=== PATIENT | male | born 1960 | race Hispanic/Latino ===

== ENCOUNTER 2024-09-12 11:14 | Emergency (ER) | payer OTHER ==
[2024-09-12] MEDS ORDERED: NA CHLORIDE 0.9% 250 ML ONE (11:37)
[2024-09-12] MEDS ORDERED: ONDANSETRON 4 MG/2 ML VIAL ONE (11:37)
[2024-09-12] MEDS ORDERED: MORPHINE 4 MG/ML SYR ONE (11:37)
[2024-09-12 11:38] LABS: Absolute Basophils 0.1 K/uL (0-0.5); Absolute Eosinophils 0.2 K/uL (0-0.5); Absolute Monocytes 0.6 K/uL (0.1-1.3); Absolute Neutrophil 4.9 K/uL (1.8-8.0); Basophils % 0.8 % (0-1.3); Eosinophils % 2.5 % (0-4.4); Hematocrit 43.3 % (39.6-49.0); Hemoglobin 14.9 g/dL (13.6-17.9); Lymphocytes % 25.8 % (15.3-44.8); MCH 28.4 pg (27.0-35.0); MCHC 34.3 g/dL (32.0-36.0); MCV 82.7 fL (80-100); MPV 7.7 fL (7.6-11.3); Monocytes % 7.5 % (3.3-12.3); Neutrophils % 63.4 % (41.7-73.7); Platelets 506 thou/uL (152-406); RBC Red Blood Cell Count 5.24 M/uL (4.33-5.43); Red Cell Distribution Width 13.4 % (12.1-15.2)
[2024-09-12 11:53] LABS: ALT/SGPT 22 U/L (16-61); Albumin 3.4 g/dL (3.4-5.0); Albumin/Globulin Ratio 0.7 (1.1-1.8); Alkaline Phosphatase 114 U/L (45-117); Anion Gap 12.1 mEq/L (5.0-15.0); BUN Blood Urea Nitrogen 13 mg/dL (7-18); Bicarbonate 23 mEq/L (21-32); Bilirubin Total 0.7 mg/dL (0.2-1.0); Globulin 4.7 g/dL (2.3-3.5); Glomerular Filtration Rate 102 ml/min (=/>90); Glucose Level 196 mg/dL (74-106); Lipase 31 U/L (13-75); Potassium 4.1 mEq/L (3.5-5.1); Protein, Total 8.1 g/dL (6.4-8.2); Sodium Level 126 mEq/L (136-145)
[2024-09-12 11:55] LABS: AST/SGOT < 10 U/L (15-37)
[2024-09-12] MEDS ORDERED: NA CHLORIDE 0.9% 500 ML ONE (12:19)
--- NOTE | 2024-09-12 12:34 | RAD REPORT ---
EXAMINATION: CT ABDOMEN AND PELVIS WITH CONTRAST CLINICAL INDICATION: ABD PAIN TECHNIQUE: CT abdomen and pelvis was performed, after the administration of IV contrast, [facility]. Axial, sagittal and coronal reconstructions were obtained. One or more of the following dose reduction techniques were used: Automated exposure control, adjustment of the mA and k V according to patient size, and iterative reconstruction. Unless otherwise specified, incidental findings do not require dedicated imaging follow-up. COMPARISON: No prior exam. FINDINGS: LOWER CHEST: The visualized lung bases are clear. LIVER: Normal in size and contour. No focal lesion. Grossly unremarkable gallbladder. SPLEEN: Normal size. No focal lesion. PANCREAS: No mass, ductal dilation, or judson-pancreatic fluid. ADRENALS: Normal; no mass. KIDNEYS: Normal size and contour. No hydronephrosis. GASTROINTESTINAL TRACT: No evidence of free air, significant intra-abdominal free fluid, bowel obstru ction or abscess. There is mild diverticulosis coli of the sigmoid colon without diverticulitis. APPENDIX: Normal appendix. LYMPH NODES: No lymphadenopathy. MUSCULOSKELETAL: Mild to moderate lumbar degenerative changes. ADDITIONAL FINDINGS: None. IMPRESSION: No acute or concerning abnormalities seen in the abdomen or pelvis.
[2024-09-12 12:36] LABS: Specific Gravity > 1.030 (1.005-1.030); Sqamous Epithelial <5 /HPF (None Seen); Urine Bacteria None Seen /HPF (<20); Urine Bilirubin NEGATIVE (Negative); Urine Blood Negative (Negative); Urine Clarity Clear (Clear); Urine Color Light-Yellow (Yellow); Urine Culture Reflex Order NOT NEEDED; Urine Glucose TRACE (Negative); Urine Ketones NEGATIVE (Negative); Urine Microscopic Reflex YN ORDER UMIC; Urine Mucus Slight /HPF (None Seen); Urine Nitrite NEGATIVE (Negative); Urine Protein NEGATIVE (Negative); Urine RBC <5 /HPF (None Seen); Urine Urobilinogen Normal (Normal); Urine WBC None Seen /HPF (<5); Urine pH 6.5 (5.0-7.0)
--- NOTE | 2024-09-12 12:42 | EDPHYS ---
Physician Documentation [facility] Name: Jonah Whitaker Age: 64 yrs Sex: Male : 1960 Arrival Date: 09/12/2024 Time: 11:14 Bed 6 Private MD: ED Physician Rizwan Suarez HPI: 09/12 11:39 This 64 yrs old Male presents to ER via Ambulatory with complaints of Pain All rn Over, Abdominal Problem - lump. 11:39 The patient presents with abdominal pain in the lower abdomen. Onset: The rn symptoms/episode began/occurred 2 week(s) ago. Associated signs and symptoms: Pertinent negatives: blood in stools, chest pain, fever. Modifying factors: The symptoms are alleviated by nothing, the symptoms are aggravated by touching the area. Severity of pain: At its worst the pain was moderate in the emergency department the pain is unchanged. The patient has experienced similar episodes in the past. Patient reports lower abdominal pain, worse on the right side, began 2 weeks ago during hospitalization for urinary tract infection at outside hospital. States still taking cephalexin but does not feel like it is taking care of the problem as he is still hurting. No fever or chills. No blood in stool. No trauma. Reports has been to multiple emergency rooms since recent hospitalization with no acute findings and discharged each time. Saw his PCP Dr. Curtis and told to come to [place] emergency room instead to find out what is going on. Patient denies worsening of symptoms just not improving.. Historical: - Allergies: 11:30 No Known Allergies; cm10 - Home Meds: 11:30 Metformin Oral [Active]; cm10 - PMHx: 11:30 Diabetes mellitus; Hypertensive disorder; cm10 - Immunization history:: Adult Immunizations unknown. - Infectious Disease History:: Denies. - Social history:: Smoking status: Patient/guardian denies using tobacco. - Family history:: not pertinent. - Hospitalizations: : Patient was recently seen at [facility]. ROS: 11:39 Constitutional: Negative for fever, chills, and weight loss, Cardiovascular: Negative rn for chest pain, palpitations, and edema, Respiratory: Negative for shortness of breath, cough, wheezing, and pleuritic chest pain, Abdomen/GI: Positive for abdominal pain Back: Negative for injury and pain, : Negative for injury, bleeding, discharge, and swelling, MS/Extremity: Negative for injury and deformity, Skin: Negative for injury, rash, and discoloration, Neuro: Negative for headache, weakness, numbness, tingling, and seizure, Exam: 11:39 Constitutional: This is a well developed, well nourished patient who is awake, alert, rn and in no acute distress. Ambulatory to room without difficulty or assistance ENT: Dry mucous membranes Cardiovascular: Tachycardic, regular. No pulse deficits. Respiratory: No increased work of breathing, no retractions or nasal flaring. Abdomen/GI: Soft, mild right lower quadrant tenderness, no masses, no rebound or guarding Skin: Warm, dry Neuro: Awake and alert, GCS 15, oriented to person, place, time, and situation. Normal gait. Vital Signs: 11:28 BP 154 / 102; Pulse 103; Resp 17; Temp 97.6(O); Pulse Ox 98% on R/A; Weight 80.29 kg; cm10 Height 5 ft. 6 in. ; Pain 9/10; 12:24 BP 141 / 92; Pulse 83; Resp 17; Pulse Ox 97% on R/A; ll1 12:48 BP 115 / 84; Pulse 62; Resp 16; Pulse Ox 97% ; ll1 11:28 Body Mass Index 28.57 (80.29 kg, 167.64 cm) cm10 11:28 Pain Scale: Adult cm10 MDM: 11:19 Medical Screening Exam initiated rn 12:36 ED course: CT abdomen pelvis images negative for acute findings per my interpretation.. rn 12:40 Differential diagnosis: appendicitis, bowel obstruction, cholecystitis, Cholelithiasis, rn diverticulitis, gastritis, gastroesophageal reflux disease, non-specific abd pain, pancreatitis, Peptic Ulcer Disease, Ureterolithiasis, urinary tract infection. Data reviewed: vital signs, nurses notes, lab test result(s), radiologic studies, CT scan, and as a result, I will discharge patient. Counseling: I had a detailed discussion with the patient and/or guardian regarding the historical points, exam findings, and any diagnostic results supporting the discharge/admit diagnosis, lab results, radiology results, the need for outpatient follow up, to return to the emergency department if symptoms worsen or persist or if there are any questions or concerns that arise at home. Special discussion: Based on the patient's Hx, exam, and Dx evaluation, there is no indication for emergent surgery or inpatient Tx. It is understood by the patient/guardian that if the Sx's persist or worsen they need to return immediately for re-evaluation. I discussed with the patient/guardian in detail that at this point there is no indication for admission to the hospital. It is understood, however, that if the symptoms persist or worsen the patient needs to return immediately for re-evaluation. Based on the history and exam findings, there is no indication for further emergent testing or inpatient evaluation. I discussed with the patient/guardian the need to see the weir fisherman for further evaluation of the symptoms. I discussed with the patient/guardian the need to see the primary care provider for further evaluation of the symptoms. ED course: No acute findings and workup today. Urine is now clean. Still taking Keflex. No indication for emergent surgery or admission at this time. Per report patient has been to multiple ERs now with negative workups, recommend PCP and GI follow-up. Return precautions given and understood.. 09/12 11:25 Order name: CBC with Diff; Complete Time: 11:48 rn 09/12 11:25 Order name: CMP; Complete Time: 11:57 rn 09/12 11:25 Order name: Lipase; Complete Time: 11:57 rn 09/12 11:25 Order name: Urinalysis w/ reflexes; Complete Time: 12:38 rn 09/12 11:25 Order name: CT Abd/Pelvis - IV Contrast Only; Complete Time: 12:35 rn 09/12 11:25 Order name: IV Saline Lock; Complete Time: 11:27 rn 09/12 11:25 Order name: Labs collected and sent; Complete Time: 11:27 rn Administered Medications: 11:42 Drug: morphine IVP or IV 4 mg IVP once over 4 mins Route: IVP; Infused Over: 4 mins; ll1 Site: right antecubital; 12:24 Follow up: Response: No adverse reaction; Pain is decreased; RASS: Alert and Calm (0) ll1 11:42 Drug: Ondansetron IVP 4 mg IVP once; over 2 minutes Route: IVP; Site: right antecubital;ll1 12:24 Follow up: Response: No adverse reaction; Nausea is decreased ll1 11:42 Drug: NS 0.9% IV 250 ml IV at calculated rate once; to be given as a bolus over 30 ll1 minutes Route: IV; Rate: calculated rate; Site: right antecubital; 12:24 Follow up: Response: No adverse reaction; IV Status: Completed infusion; IV Intake: ll1 250ml 12:24 Drug: NS 0.9% IV 500 ml 500 ml IV at 1 bolus once; to be given as a bolus over 30 ll1 minutes Volume: 500 ml; Route: IV; Rate: 1 bolus; Site: right antecubital; 12:48 Follow up: Response: No adverse reaction; IV Status: Completed infusion; IV Intake: ll1 450ml Disposition Summary: 09/12/24 12:42 Discharge Ordered Notes: Location: Home rn Problem: an ongoing problem rn Symptoms: have improved rn Condition: Stable rn Diagnosis - Abdominal pain, unspecified rn Followup: rn - With: Vladimir Curtis DO - When: As needed - Reason: Recheck today's complaints, Re-evaluation by your physician Discharge Instructions: - Discharge Summary Sheet rn - Abdominal Pain, Adult rn - Pain Without a Known Cause rn Forms: - Medication Reconciliation Form rn - Antibiotic pr intern - Prescription Opioid Use rn - Patient Portal Instructions rn - Leadership Thank You Letter rn Prescriptions: - Tramadol 50 mg Oral Tablet - take 1 tablet ORAL route every 8 hours as needed; 12 tablet; Refills: 0, rn Product Selection Permitted Signatures: Dispatcher [employer] EDMS Rizwan Suarez MD MD rn Lewis, Lynsay, RN RN ll1 Zelda Matthews, RN RN cm10 Corrections: (The following items were deleted from the chart) 11:41 11:39 Hospitalizations: No recent hospitalization is reported. rn rn 11:42 11:39 Constitutional: This is a well developed, well nourished patient who is awake, rn alert, and in no acute distress. Ambulatory to room without difficulty or assistance Cardiovascular: Tachycardic, regular. No pulse deficits. Respiratory: No increased work of breathing, no retractions or nasal flaring. Abdomen/GI: Soft, mild right lower quadrant tenderness, no masses, no rebound or guarding Skin: Warm, dry Neuro: Awake and alert, GCS 15, oriented to person, place, time, and situation. Normal gait. rn
--- NOTE | 2024-09-12 12:42 | ER ---
Nurse's Notes [facility] Name: Jonah Whitaker Age: 64 yrs Sex: Male : 1960 Arrival Date: 09/12/2024 Time: 11:14 Bed 6 Private MD: Diagnosis: Abdominal pain, unspecified Presentation: 09/12 11:28 Chief complaint: Patient states: Abdominal pain onset 08/23. Pt states that he was seen cm10 at [facility] and was diagnosed with kidney infection 2 weeks ago. pt states that his abdominal pain is not improving and radiates to his back. pt also report bloating. Pt taking Cephalexin and recently started on Metformin. Coronavirus screen: Client denies travel out of the [place] in the last 14 days. Ebola Screen: Patient denies travel to an Ebola-affected area in the 21 days before illness onset. Initial Sepsis Screen: Does the patient meet any 2 criteria? HR > 90 bpm. Does the patient have a suspected source of infection? No. Patient's initial sepsis screen is negative. Risk Assessment: Do you want to hurt yourself or someone else? Patient reports no desire to harm self or others. Onset of symptoms was August 23, 2024. 11:28 Method Of Arrival: Ambulatory cm10 11:28 Acuity: CESAR 3 cm10 Triage Assessment: 11:32 General: Appears in no apparent distress. uncomfortable, Behavior is calm, cooperative, cm10 appropriate for age. Neuro: No deficits noted. Level of Consciousness is awake, alert, obeys commands, Oriented to person, place, time, situation, Appropriate for age. Respiratory: No deficits noted. Airway is patent Respiratory effort is even, unlabored, Respiratory pattern is regular, symmetrical. Historical: - Allergies: 11:30 No Known Allergies; cm10 - Home Meds: 11:30 Metformin Oral [Active]; cm10 - PMHx: 11:30 Diabetes mellitus; Hypertensive disorder; cm10 - Immunization history:: Adult Immunizations unknown. - Infectious Disease History:: Denies. - Social history:: Smoking status: Patient/guardian denies using tobacco. - Family history:: not pertinent. - Hospitalizations: : Patient was recently seen at [facility]. Screenin:43 [facility] ED Fall Risk Assessment (Adult) History of falling in the last 3 months, ll1 including since admission No falls in past 3 months (0 pts) Confusion or Disorientation No (0 pts) Intoxicated or Sedated No (0 pts) Impaired Gait No (0 pts) Mobility Assist Device Used No (0 pt) Altered Elimination No (0 pt) Score/Fall Risk Level 0 - 2 = Low Risk Maintained a safe environment, Hourly rounding (assess needs \T\ fall precautionary measures) done. Abuse screen: Denies threats or abuse. Nutritional screening: No deficits noted. Tuberculosis screening: No symptoms or risk factors identified. Assessment: 11:42 Reassessment: No changes from previously documented assessment. Patient and/or family ll1 updated on plan of care and expected duration. Pain level reassessed. Patient is alert, oriented x 3, equal unlabored respirations, skin warm/dry/pink. 11:43 Cardiovascular: No deficits noted. Denies chest pain. ll1 11:43 General: Appears uncomfortable, Behavior is calm, cooperative, appropriate for age. ll1 Pain: Complains of pain in abdomen Pain radiates to back Quality of pain is described as pressure, numb, Pain began months. GI: Reports lower abdominal pain, upper abdominal pain, bloating. 12:25 Reassessment: No changes from previously documented assessment. Patient and/or family ll1 updated on plan of care and expected duration. Pain level reassessed. Patient is alert, oriented x 3, equal unlabored respirations, skin warm/dry/pink. 12:48 Reassessment: No changes from previously documented assessment. Patient and/or family ll1 updated on plan of care and expected duration. Pain level reassessed. Patient is alert, oriented x 3, equal unlabored respirations, skin warm/dry/pink. Vital Signs: 11:28 BP 154 / 102; Pulse 103; Resp 17; Temp 97.6(O); Pulse Ox 98% on R/A; Weight 80.29 kg; cm10 Height 5 ft. 6 in. ; Pain 9/10; 12:24 BP 141 / 92; Pulse 83; Resp 17; Pulse Ox 97% on R/A; ll1 12:48 BP 115 / 84; Pulse 62; Resp 16; Pulse Ox 97% ; ll1 11:28 Body Mass Index 28.57 (80.29 kg, 167.64 cm) cm10 11:28 Pain Scale: Adult cm10 ED Course: 11:18 Patient arrived in ED. im 11:19 Rizwan Suarez MD is Attending Physician. rn 11:20 Nasir Gama, GREGORY is Primary Nurse. ll1 11:30 Triage completed. cm10 11:32 Arm band placed on right wrist. Patient placed in an exam room, on a stretcher. cm10 11:32 Initial lab(s) drawn, by me, sent to lab. Inserted saline lock: 22 gauge in right ss antecubital area, using aseptic technique. Blood collected. Flushed with 10 mL NS. 11:42 Patient has correct armband on for positive identification. Provided Education on: ER ll1 procedures and process. Client placed on continuous cardiac and pulse oximetry monitoring. NIBP monitoring applied. Warm blanket given. 12:11 CT Abd/Pelvis - IV Contrast Only In Process Unspecified. EDMS 12:25 No provider procedures requiring assistance completed. Patient maintains SpO2 ll1 saturation greater than 95% on room air. 12:41 Vladimir Curtis DO is Referral Physician. rn 12:48 IV discontinued, intact, bleeding controlled, No redness/swelling at site. Pressure ll1 dressing applied. Administered Medications: 11:42 Drug: morphine IVP or IV 4 mg IVP once over 4 mins Route: IVP; Infused Over: 4 mins; ll1 Site: right antecubital; 12:24 Follow up: Response: No adverse reaction; Pain is decreased; RASS: Alert and Calm (0) ll1 11:42 Drug: Ondansetron IVP 4 mg IVP once; over 2 minutes Route: IVP; Site: right antecubital;ll1 12:24 Follow up: Response: No adverse reaction; Nausea is decreased ll1 11:42 Drug: NS 0.9% IV 250 ml IV at calculated rate once; to be given as a bolus over 30 ll1 minutes Route: IV; Rate: calculated rate; Site: right antecubital; 12:24 Follow up: Response: No adverse reaction; IV Status: Completed infusion; IV Intake: ll1 250ml 12:24 Drug: NS 0.9% IV 500 ml 500 ml IV at 1 bolus once; to be given as a bolus over 30 ll1 minutes Volume: 500 ml; Route: IV; Rate: 1 bolus; Site: right antecubital; 12:48 Follow up: Response: No adverse reaction; IV Status: Completed infusion; IV Intake: ll1 450ml Medication: 11:43 VIS not applicable for this client. ll1 Intake: 12:24 IV: 250ml; Total: 250ml. ll1 12:48 IV: 450ml; Total: 700ml. ll1 Outcome: 12:42 Discharge ordered by . rn 12:48 Discharged to home ambulatory, ll1 12:48 Condition: stable 12:48 Discharge instructions given to patient, Instructed on discharge instructions, follow up and referral plans. no drinking with medication, no driving heavy equipment, medication usage, Demonstrated understanding of instructions, follow-up care, medications, Prescriptions given X 1, 12:49 Patient left the ED. ll1 Signatures: Dispatcher [employer] EDMS Rizwan Suarez MD MD rn Blanchard, Shelby RN Nasir Siddiqi RN RN ll1 Jasmin Tinajero Clarissa, RN RN cm10 Corrections: (The following items were deleted from the chart) 11:41 11:39 Hospitalizations: No recent hospitalization is reported. rn gregory
[2024-09-12 13:07] VITALS: TEMP 97.6
[2024-09-12 13:13] VITALS: O2SAT 97
[2024-09-12 13:14] VITALS: BP 115/84
== END 2024-09-12 12:49 | disposition home or self-care (01) ==
LOC: ER 11:14
DX: R10.31 Right lower quadrant pain (principal); E11.9 Type 2 diabetes mellitus without complications; I10 Essential (primary) hypertension
CPT/HCPCS: 96365; 85025; 81001; 36415; 83690; 80053; 74177; 96375; 99284; Q9967; J2405; J7050; J7040

== ENCOUNTER 2024-09-19 06:45 | Emergency (ER) | payer OTHER ==
--- OUTSIDE RECORDS SUMMARY | 2024-09-19 06:49 | XMS REPORT | Continuity of Care Document ---
Author Name Unknown Address [address] [facility] [address] [place] [address] [facility] Address [address] [facility] [address] [facility] 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 Name Role Phone PCP, PATIENT DOES NOT HAVE A Primary Care Physic marco Unavailable QUINTEN LAZAR Attending Clinician Unavailable TRAVIS OLEARY Attending Clinician UnavailTOD Wheat Attending Clinician Unavailable TOD RODAS Attending Clinician Unavailable TOD RODAS Attending Clinician Unavailable Henry Barry MD Attending Clinician [phone] Mihir Soni MD Attending Clinician [phone] Tod Rodas DO Attending Clinician [phone] [id number] Attending Clinician Unavailable Campaigns, Generic Provider Attending Clinician Unavailable MEE ALONZO Attending Clinician Unavailable [id number] Attending Clinician Unavailable Jose Antonio NGUYEN Attending Clinician Unavailable Jose Antonio NGUYEN Attending Clinician Unavailable Jose Antonio Mckeon Attending Clinician [phone] FARNAZ CORRAL Attending Clinician Unavailable FARNAZ CORRAL Attending Clinician Unavailable Farnaz Sun Attending Clinician [phone] CARLITA RAZA Attending Clinician Unavailable TROY VILLAVICENCIO Attending Clinician EKTA Lopez Attending Clinician UnavailINA Cast Attending Clinician Unavailable Ina Baron MD Attending Clinician HENRY BARRY Admitting Clinician Unavailable FARNAZ CORRAL Admitting Clinician Unavailable EKTA MUNOZ Admitting Clinician UnavailINA Cast Admitting Clinician Unavailable Payers Payer Name Policy Type Policy Number Effective Date Expirati on Date Source RAJI Hudson [facility] 94 9 [id number] 2024 00:00:00 MEDICARE PART A \T\ B [id number] 2024 00:00:00 EDNA Gonzalez/ DIXIE WERNER [id number] 2023 00:00:00 Problems Condition Name Condition Details Condition Category Status Onset Date Resolution Date Last Treatment Date Treating Clinician Comments Source 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, without long-term current use of insulin (multi HCC) 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, without long-term current use of insulin (multi HCC) Disease Active 08-31 00:00: 00 Dixie Seybold - Externa l Other constipati on Other constipati on Disease Active 08-31 00:00: 00 Dxiie Seybold - Externa l Acute cystitis without hematuria Acute cystitis without hematuria Disease Active 08-31 00:00: 00 Dixie Seybold - Externa l Hyponatrem ia Hyponatrem ia Disease Active 08-31 00:00: 00 Dixie Seybold - Externa l Diabetes mellitus type 2, noninsulin dependent (multi HCC) Diabetes mellitus type 2, noninsulin dependent (multi HCC) Disease Active 08-31 00:00: 00 Dixie Seybold - Externa l DM type 2 with diabetic mixed hyperlipid emia (multi HCC) DM type 2 with diabetic mixed hyperlipid emia (multi HCC) Disease Active 08-29 00:00: 00 Dixie Seybold - Externa l Kidney stone Kidney stone Disease Active 2023-08 00:00: 00 Dixie Seybold - Externa l Allergies, Adverse Reactions, Alerts Allergy Name Allergy Type Status Severity Reaction(s) Onset Date Inactive Date Treating Clinician Comments Source NO KNOWN ALLERGIE S Drug Class Active [facility] Social History Social Habit Start Date Stop Date Quantity Comments Source History of tobacco use Cigarette Smoker Dixie Sesilvana Pettit External Sexual orientation [facility] Alcoholic beverage intake 2024-08-31 00:00:00 2024-08-31 00:00:00 Lifetime non-drinker (finding) Dixie Shankar - External History of Social function 2024-08-31 00:00:00 2024-08-31 00:00:00 Dixie Shankar - External Tobacco use and exposure 2024-08-25 00:00:00 2024-08-25 00:00:00 Smokeless tobacco non-user Dixie Shankar - External Sex 2022-09-11 13:22:27 2022-09-11 13:22:27 Male (finding) Dixie Shankar - External Sex assigned at 1960 00:00:00 1960 00:00:00 Dixie Pettit External Smoking Status Start Date Stop Date Source Tobacco smoking consumption unknown [facility] Occasional tobacco smoker 2024-08-25 00:00:00 Dixie Pettit External Medications Ordered Medication Name Filled Medication Name Start Date Stop Date Current Medication? Ordering Clinician Indication Dosage Frequency Signature (SIG) Comments Components Source cefTRIAXone (ROCEPHIN) 1,000 mg in water for injection, sterile 10 mL IV Push 09-04 17:15: 00 09-04 17:06 :00 No 1000mg 1,000 mg, Intravenou s, ONCE, 1 dose, On 09/04/24 at 1115, 10 mL, Reason for Anti-Infec tive: Empiric Therapy for Suspected Infection, Empiric Therapy Site: Urine, Duration of therapy: Once (ED) [facility] HYDROcodone -acetaminop hen (NORCO 5) tablet 1 tablet 09-04 15:30: 00 09-04 15:59 :00 No 1{tbl} 1 tablet, Oral, ONCE, 1 dose, On 09/04/24 at 0930, NANCI [facility] morpHINE injection 4 mg 09-04 07:30: 00 09-04 07:30 :00 No 4mg 4 mg, Slow IV Push, ONCE, 1 dose, On 09/04/24 at 0130, STAT [facility] iopamidol (ISOVUE 370-500 mL) injection 100 mL 09-04 06:30: 00 09-04 06:30 :00 No [id number] 100mL 100 mL, Intravenou s, ONCE, 1 dose, On 09/04/24 at 0030, Routine [facility] ketorolac (TORADOL) injection 15 mg 09-04 06:00: 00 09-04 05:13 :00 No 15mg 15 mg, Slow IV Push, ONCE, 1 dose, On 09/04/24 at 0000, [facility] methocarbam oL (ROBAXIN) injection 1,000 mg 09-04 05:45: 00 09-04 05:13 :00 No 1000mg 1,000 mg, Slow IV Push, ONCE, 1 dose, On 09/03/24 at 2345, Routine [facility] NaCl 0.9% (NS) bolus infusion 1,000 mL 09-04 05:45: 00 09-04 06:12 :00 No 1000mL at 999 mL/hr, 1,000 mL, IV Infusion, ONCE, 1 dose, On 09/03/24 at 2345, NANCI [facility] morpHINE injection 4 mg 09-04 05:00: 00 09-04 05:13 :00 No 4mg 4 mg, Slow IV Push, ONCE, 1 dose, On 09/03/24 at 2300, STAT [facility] ibuprofen 600 mg tablet 09-04 00:00: 00 Yes [id number] 600mg Take 1 tablet by mouth every 6 (six) hours as needed for Pain (scale 4-6). [facility] traMADoL 50 mg tablet 09-04 00:00: 00 Yes [id number] 50mg Take 1 tablet by mouth every 6 (six) hours as needed for Pain (scale 1-3). Indication s: acute pain [facility] cephALEXin 500 mg capsule 09-04 00:00: 00 09-12 05:59 :00 Yes [id number] 500mg Take 1 capsule by mouth in the morning and 1 capsule in the evening. Do all this for 7 days. [facility] Naproxen (Naprosyn) 500 MG oral Tablet 08-31 11:30: 22 08-31 00:00 :00 No 500mg Take 1 tablet (500 mg total) by mouth in the morning and 1 tablet (500 mg total) in the evening. Take with meals. Dixie saini glipiZIDE 5 MG oral Tablet 08-31 00:00: 00 Yes [id number] 5mg Take 1 tablet (5 mg total) by mouth daily (before a meal). Dixie saini Atorvastati n Calcium 20 MG oral Tablet 08-31 00:00: 00 Yes [id number] 3 20mg QD Take 1 tablet (20 mg total) by mouth nightly. Dixie saini Metformin HCl 500 MG oral Tablet 08-31 00:00: 00 Yes [id number] 500mg Take 1 tablet (500 mg total) by mouth in the morning and 1 tablet (500 mg total) in the evening. Take with meals. Dixie saini Blood Glucose Monitoring Suppl (Blood Glucose Monitor System) w/Device does not apply Kit 08-31 00:00: 00 Yes [id number] 3 Check BS twice daily. Dixie saini Glucose Blood in vitro Strip 08-31 00:00: 00 Yes [id number] 3 Check BS twice daily. Dixie saini Lancets 30G does not apply Misc 08-31 00:00: 00 Yes [id number] 3 Check BS twice daily. Dixie saini Gabapentin 100 MG oral Capsule 08-31 00:00: 00 Yes [id number] 100mg Q.5D Take 1 capsule (100 mg total) by mouth 2 times daily as needed. Dixie saini Amoxicillin (AMOXIL) 500 MG oral Capsule 08-29 00:00: 09-06 05:59 :00 Yes [id number] 500mg Q.[id number] 3D Take 1 capsule (500 mg total) by mouth 3 times daily for 7 days. Dixie saini Atorvastati n Calcium 20 MG oral Tablet 08-29 00:00: 08-31 00:00 :00 No [id number] 20mg QD Take 1 tablet (20 mg total) by mouth daily. Dixie saini Metformin HCl 500 MG oral Tablet 08-29 00:00: 00 08-31 00:00 :00 No [id number] 500mg Take 1 tablet (500 mg total) by mouth in the morning and 1 tablet (500 mg total) in the evening. Take with meals. Dixie saini Naproxen (Naprosyn) 500 MG oral Tablet 08-25 15:07: 09 Yes 500mg Take 1 tablet (500 mg total) by mouth in the morning and 1 tablet (500 mg total) in the evening. Take with meals. Dixie saini Tamsulosin HCl 0.4 MG oral Capsule 08-25 00:00: 00 08-31 00:00 :00 No [id number] .4mg Take 1 capsule (0.4 mg total) by mouth every night at bedtime. Dixie saini metFORMIN (GLUCOPHAGE ) tablet 500 mg 08-24 23:00: 00 Yes 500mg 500 mg, Oral, BID MEALS, First dose on Thu08/24/24 at 1700, Until Discontinu ed, Routine [facility] ketorolac (TORADOL) injection 15 mg 08-24 19:30: 00 08-24 18:24 :00 No 15mg 15 mg, Slow IV Push, ONCE, 1 dose, On Thu08/24/24 at 1330, NANCI [facility] NaCl 0.9% (NS) bolus infusion 1,000 mL 08-24 17:45: 00 08-24 19:18 :00 No 1000mL at 999 mL/hr, 1,000 mL, IV Infusion, ONCE, 1 dose, On Thu08/24/24 at 1145, STAT [facility] acetaminoph en (TYLENOL) tablet 1,000 mg 08-24 16:45: 00 08-24 16:48 :00 No 1000mg 1,000 mg, Oral, ONCE, 1 dose, On Thu08/24/24 at 1045, Routine [facility] naproxen (NAPROSYN) 500 mg tablet 08-24 00:00: 00 Yes [id number] 500mg Take 1 tablet by mouth in the morning and 1 tablet in the evening. Take with meals. [facility] metFORMIN 500 mg tablet 08-24 00:00: 00 Yes [id number] 500mg Take 1 tablet by mouth in the morning and 1 tablet in the evening. [facility] iopamidol (ISOVUE 370-500 mL) injection 85 mL 2023-08 07:30: 00 08-14 07:30 :00 No [id number] 85mL 85 mL, Intravenou s, ONCE, 1 dose, On 08/14/24 at 0130, Routine [facility] ibuprofen (IBU) tablet 600 mg 2023-08 05:00: 00 08-14 05:05 :00 No 600mg 600 mg, Oral, ONCE, 1 dose, On 08/13/24 at 2300, NANCI [facility] diphenhydrA MINE (BENADRYL) tablet 25 mg 2023-08 05:00: 00 08-14 05:05 :00 No 25mg 25 mg, Oral, ONCE, 1 dose, On 08/13/24 at 2300, NANCI [facility] NaCl 0.9% (NS) IV infusion 1,000 mL 2023-08 04:51: 00 08-14 07:10 :00 No 1000mL at 999 mL/hr, Intravenou s, ONCE, 1 dose, On 08/13/24 at 2300, NANCI [facility] ondansetron 4 mg disintegrat ing tablet 2023-08 00:00: 00 Yes [id number] 4mg Take 1 tablet by mouth every 8 (eight) hours as needed for Nausea and Vomiting (N/V). [facility] Dicyclomine HCl 10 MG oral Capsule 2023-08 00:00: 08-31 00:00 :00 No 10mg Q.[id number] 3D Take 1 capsule (10 mg total) by mouth 3 times daily as needed. Dixie saini Tamsulosin HCl 0.4 MG oral Capsule 2023-08 00:00: 00 08-25 00:00 :00 No [id number] .4mg Take 1 capsule (0.4 mg total) by mouth every night at bedtime. Dixie saini Ketorolac Tromethamin e 10 MG oral Tablet 2023-08 00:00: 00 08-25 00:00 :00 No [id number] 10mg Q.25D Take 1 tablet (10 mg total) by mouth every 6 hours as needed for pain. Dixie saini Acetaminoph en-Codeine 300-30 MG oral Tablet 09-29 00:00: 00 10-07 05:59 :00 No [id number] 1{tbl} Q.25D Take 1-2 tablets by mouth every 6 hours as needed for up to 7 days. Dixie saini FENTanyl PF (SUBLIMAZE (PF)) injection 50 mcg 09-23 00:45: 00 09-23 00:57 :00 No 50ug 50 mcg, Intramuscu lar, ONCE, 1 dose, On Thu09/22/23 at 1845, Routine [facility] Acetaminoph en-Codeine 300-30 MG oral Tablet 09-22 00:00: 00 09-29 00:00 :00 No 1{tbl} Q.25D Take 1 tablet by mouth every 6 hours as needed. Dixie Shankar - Externa l HYDROcodone -acetaminop hen (NORCO) 10-325 mg tablet 1 tablet 02-12 19:15: 00 02-12 18:31 :00 No 1{tbl} 1 tablet, Oral, ONCE, 1 dose, On Ana 02/12/23 at 1415, Routine [facility] HYDROcodone -acetaminop hen 5-325 mg tablet 02-12 00:00: 00 02-20 04:59 :00 No [id number] 1{tbl} Take 1-2 tablets by mouth every 6 (six) hours as needed for Pain (scale 1-3) for up to 7 days. Indication s: acute pain [facility] Vital Signs Vital Name Observation Time Observation Value Comments S ource Systolic blood pressure 2024-09-04 17:15:00 130 mm[Hg] [facility] Diastolic blood pressure 2024-09-04 17:15:00 89 mm[Hg] [facility] Heart rate 2024-09-04 17:15:00 82 /min [facility] Respiratory rate 2024-09-04 17:15:00 18 /min [facility] Oxygen saturation in Arterial blood by Pulse oximetry 2024-09-04 17:15:00 99 /min [facility] Body temperature 2024-09-04 12:37:00 36.72 [place] [facility] Body weight 2024-09-04 04:22:00 80.287 kg [facility] BMI 2024-09-04 04:22:00 28.57 kg/m2 [facility] Systolic blood pressure 2024-08-31 17:12:00 130 mm[Hg] Dixie toledo - External Diastolic blood pressure 2024-08-31 17:12:00 70 mm[Hg] Dixie toledo - External Heart rate 2024-08-31 17:12:00 86 /min Al Shankar - External Body temperature 2024-08-31 17:12:00 37 [place] Dixie Shankar - External Respiratory rate 2024-08-31 17:12:00 18 /min Dixie Seybold - External Body height 2024-08-31 17:12:00 167.6 cm Edie ey Seybold - External Body weight 2024-08-31 17:12:00 80.06 kg Edie ey Seybold - External BMI 2024-08-31 17:12:00 28.49 kg/m2 Edie ey Seybold - External Oxygen saturation in Arterial blood by Pulse oximetry 2024-08-31 17:12:00 98 /min Dixie Estradaybo ld - External Systolic blood pressure 2024-08-25 20:45:00 138 mm[Hg] Dixie Seybo ld - External Diastolic blood pressure 2024-08-25 20:45:00 88 mm[Hg] Dixie Estradaybo ld - External Heart rate 2024-08-25 20:45:00 88 /min Al haile Seybold - External Body temperature 2024-08-25 20:45:00 36.94 [place] Dixie Seybold - External Respiratory rate 2024-08-25 20:45:00 18 /min Dixie Seybold - External Body height 2024-08-25 20:45:00 167.6 cm Edie ey Seybold - External Body weight 2024-08-25 20:45:00 80.287 kg Edie ey Seybold - External BMI 2024-08-25 20:45:00 28.57 kg/m2 Edie ey Seybold - External Systolic blood pressure 2024-08-24 20:00:00 159 mm[Hg] [facility] Diastolic blood pressure 2024-08-24 20:00:00 85 mm[Hg] [facility] Heart rate 2024-08-24 20:00:00 70 /min [facility] Body temperature 2024-08-24 20:00:00 36.67 [place] [facility] Respiratory rate 2024-08-24 20:00:00 18 /min [facility] Oxygen saturation in Arterial blood by Pulse oximetry 2024-08-24 20:00:00 98 /min [facility] Body height 2024-08-24 16:15:00 167.6 cm [facility] Body weight 2024-08-24 16:15:00 81.647 kg [facility] BMI 2024-08-24 16:15:00 29.05 kg/m2 [facility] Heart rate 2024-08-14 08:44:00 71 /min [facility] Body temperature 2024-08-14 08:44:00 36.78 [place] [facility] Oxygen saturation in Arterial blood by Pulse oximetry 2024-08-14 08:44:00 97 /min [facility] Systolic blood pressure 2024-08-14 08:00:00 95 mm[Hg] [facility] Diastolic blood pressure 2024-08-14 08:00:00 62 mm[Hg] [facility] Respiratory rate 2024-08-14 08:00:00 15 /min [facility] Body height 2024-08-14 04:16:00 167.6 cm [facility] Body weight 2024-08-14 04:16:00 81.647 kg [facility] BMI 2024-08-14 04:16:00 29.05 kg/m2 [facility] Systolic blood pressure 2024-06-02 19:29:00 124 mm[Hg] Dixie Seybo ld - External Diastolic blood pressure 2024-06-02 19:29:00 82 mm[Hg] Dixie Seybo ld - External Heart rate 2024-06-02 19:29:00 75 /min Kelse y Seybold - External Body temperature 2024-06-02 19:29:00 36.61 [place] Dixie Seybold - External Respiratory rate 2024-06-02 19:29:00 14 /min Dixie Seybold - External Body height 2024-06-02 19:29:00 167.6 cm Edie ey Seybold - External Body weight 2024-06-02 19:29:00 82.101 kg Edie ey Seybold - External BMI 2024-06-02 19:29:00 29.21 kg/m2 Edie ey Seybold - External Diastolic blood pressure 2023-09-29 22:33:00 84 mm[Hg] Dixie Seybo ld - External Heart rate 2023-09-29 22:33:00 84 /min Kelse y Seybold - External Body temperature 2023-09-29 22:33:00 36.83 [place] Dixie Estradaybold - External Respiratory rate 2023-09-29 22:33:00 18 /min Dixie Estradaybold - External Body height 2023-09-29 22:33:00 167.6 cm Edie paez Seybold - External Body weight 2023-09-29 22:33:00 83.093 kg Edie paez Seybold - External BMI 2023-09-29 22:33:00 29.57 kg/m2 Edie paez Seybold - External Oxygen saturation in Arterial blood by Pulse oximetry 2023-09-29 22:33:00 98 /min Dixie Harvey ld - External Systolic blood pressure 2023-09-29 22:33:00 138 mm[Hg] Dixiedenae Nesbitto ld - External Systolic blood pressure 2023-09-23 02:40:00 142 mm[Hg] [facility] Diastolic blood pressure 2023-09-23 02:40:00 87 mm[Hg] [facility] Heart rate 2023-09-23 02:40:00 76 /min [facility] Respiratory rate 2023-09-23 02:40:00 18 /min [facility] Oxygen saturation in Arterial blood by Pulse oximetry 2023-09-23 02:40:00 99 /min [facility] Body temperature 2023-09-22 22:37:00 36.5 [place] [facility] Body height 2023-09-22 22:37:00 167.6 cm [facility] Body weight 2023-09-22 22:37:00 90.719 kg [facility] BMI 2023-09-22 22:37:00 32.28 kg/m2 [facility] Systolic blood pressure 2023-02-12 17:35:00 168 mm[Hg] [facility] Diastolic blood pressure 2023-02-12 17:35:00 107 mm[Hg] [facility] Heart rate 2023-02-12 17:35:00 75 /min [facility] Body temperature 2023-02-12 17:35:00 37 [place] [facility] Respiratory rate 2023-02-12 17:35:00 14 /min [facility] Body height 2023-02-12 17:35:00 167.6 cm [facility] Body weight 2023-02-12 17:35:00 86.183 kg [facility] BMI 2023-02-12 17:35:00 30.67 kg/m2 [facility] Oxygen saturation in Arterial blood by Pulse oximetry 2023-02-12 17:35:00 99 /min [place] [facility] Procedures Procedure Date / Time Performed Performing Clinician Source POCT GLUCOSE (AUTOMATED) 2024-09-04 16:03:00 Raimundo Rodas [facility] CT ABDOMEN PELVIS W CONTRAST 2024-09-04 05:32:31 RutlandHenry [facility] CT TRAUMA THORACIC SPINE WO CONTRAST 2024-09-04 05:32:31 Barry [facility] CT TRAUMA LUMBAR SPINE WO CONTRAST 2024-09-04 05:32:31 Henry Barry [facility] URINALYSIS 2024-09-04 05:02:00 Henry Barry [facility] LIPASE 2024-09-04 04:58:00 Henry Barry [facility] HEPATIC FUNCTION PANEL ([id number]) (ALB,T.PRO,BILI T,BU/BC,ALT,AST,ALK PHOS) 2024-09-04 04:58:00 Henry Barry [facility] BASIC METABOLIC PANEL (NA, K, CL, CO2, GLUCOSE, BUN, CREATININE, CA) 2024-09-04 04:58:00 Henry Barry [facility] SEDIMENTATION RATE 2024-09-04 04:58:00 [facility] 2024-09-04 04:58:00 Henry Barry [facility] POCT GLUCOSE (AUTOMATED) 2024-08-24 19:17:00 Jose Antonio Nguyen [facility] TROPONIN I 2024-08-24 16:26:00 Jose Antonio Nguyen [facility] COMP. METABOLIC PANEL ([id number]) 2024-08-24 16:26:00 Jose Antonio Nguyen Petty [facility] CBC WITH DIFF 2024-08-24 16:26:00 Jose Antonio Nguyen Pet[facility] URINALYSIS 2024-08-24 16:26:00 Jose Antonio Nguyen [facility] LIPASE 2024-08-24 16:26:00 Jose Antonio Nguyen [facility] MAGNESIUM 2024-08-24 16:26:00 Jose Antonio Nguyen Petty [facility] XR CHEST 1 VW 2024-08-14 06:36:51 Ellis [facility] CT ABDOMEN PELVIS W CONTRAST 2024-08-14 06:35:52 Ellis [facility] LACTIC ACID WHOLE BLOOD 2024-08-14 04:51:00 Becca Corral [facility] LIPASE 2024-08-14 04:50:00 Farnaz Corral [facility] COMP. METABOLIC PANEL ([id number]) 2024-08-14 04:50:00 Ellis [facility] CBC WITH DIFF 2024-08-14 04:50:00 Ellis [facility] URINALYSIS 2024-08-14 04:50:00 Ellis [facility] RAPID STREP SCREEN FOR GROUP A 2024-08-14 04:50:00 Ellis [facility] INFLUENZA A/B RSV COVID NAAT 2024-08-14 04:50:00 Ellis [facility] CT CERVICAL SPINE WO CONTRAST 2023-09-23 00:13:36 Alexander [facility] [address] HEAD WO CONTRAST 2023-09-23 00:13:36 Riki Munoz [facility] XR PELVIS <3 VW 2023-09-22 23:52:02 Ekta Munoz [facility] XR WRIST 3+ VW LEFT 2023-09-22 23:52:02 Riki Munoz [facility] ASSIGNMENT OF BENEFITS 2023-09-22 23:39:03 Docto r Unassigned, [place] [facility] NOTICE OF PRIVACY PRACTICES 2023-09-22 23:38:35 Doctor Unassigned, [place] [facility] CONSENT/REFUSAL FOR DIAGNOSIS AND TREATMENT 2023-09-22 23:38:21 Doctor Unassigned, [place] [facility] ASSIGNMENT OF BENEFITS 2023-02-12 17:56:38 Docto r Unassigned, [place] [facility] CONSENT/REFUSAL FOR DIAGNOSIS AND TREATMENT 2023-02-12 17:31:06 Doctor Unassigned, [place] [facility] NOTICE OF PRIVACY PRACTICES 2023-02-12 17:30:40 Doctor Unassigned, [place] [facility] Encounters Start Date/Time End Date/Time Encounter Type Admission Type Attending [facility] Care Department Encounter ID Source 2024-09-29 11:00:00 2024-09-29 11:00:00 Outpatient QUINTEN LAZAR [id number] [facility] 2024-09-20 15:30:00 2024-09-20 15:30:00 Outpatient DIXIE WHARTON [id number] [facility] 2024-09-12 14:15:00 2024-09-12 14:15:00 Outpatient DIXIE WHARTON [id number] [facility] 2024-09-12 00:00:00 2024-09-12 00:00:00 Outpatient QUINTEN LAZAR [id number] [facility] 2024-09-07 11:30:00 2024-09-07 11:30:00 Outpatient TRAVIS OLEARY [id number] [facility] 2024-09-03 22:29:00 2024-09-04 11:54:00 Emergency X TOD RODAS HEE-KWANG YOO, HEE-KWANG AKALLISON ERT [id number] [facility] 2024-09-03 22:29:00 2024-09-04 11:54:00 Emergency Henry Barry Luke R Yoo, Hee-Kwang [facility] ([facility]) [id number] [facility] 2024-08-31 11:55:00 2024-08-31 11:55:00 Outpatient LAB90 DIXIE WHARTON [id number] [facility] 2024-08-31 00:00:00 2024-08-31 11:31:01 Letter (Out) Campaigns, Generic Provider Campaigns, Generic Provider [facility] (ELISABETH) [id number] [facility] 2024-08-31 11:00:00 2024-08-31 11:00:00 Outpatient QUINTEN LAZAR [id number] [facility] 2024-08-29 00:00:00 2024-08-29 00:00:00 Outpatient MEE ALONZO [id number] [facility] 2024-08-29 00:00:00 2024-08-29 00:00:00 Outpatient MEE ALONZO [id number] [facility] 2024-08-26 09:55:00 2024-08-26 09:55:00 Outpatient [id number] DIXIE WHARTON [id number] [facility] 2024-08-25 14:15:00 2024-08-25 14:15:00 Outpatient MEE ALONZO [id number] [facility] 2024-08-24 10:07:00 2024-08-24 14:39:00 Emergency X Jose Antonio NGUYEN K [facility] ERT [id number] [facility] 2024-08-24 10:07:00 2024-08-24 14:39:00 Emergency Jose Antonio Nguyen [facility] [id number] [facility] 2024-08-13:23:00 2024-08-14 02:49:00 Emergency X FARNAZ CORRAL SHINTA [facility] ERT [id number] [facility] 2024-08-13 22:23:00 2024-08-14 02:49:00 Emergency Farnaz Corral [facility] [id number] [id number] [id number] [id number] [facility] 2024-08-01 11:00:00 2024-08-01 11:00:00 Outpatient DIXIE WHARTON [id number] Dixie Shankar 2024-07-14 10:00:00 2024-07-14 10:00:00 Outpatient CARLITA RAZA [id number] [facility] 2024-07-13 00:00:00 2024-07-13 00:00:00 Outpatient CARLITA RAZA [id number] Dixie [facility] 2024-07-08 11:00:00 2024-07-08 11:00:00 Outpatient DIXIE WHARTON [id number] Dixie [facility] 2024-06-02 15:25:00 2024-06-02 15:25:00 Outpatient LAB90 DIXIE WHARTON [id number] Dixie [facility] 2024-06-02 14:30:00 2024-06-02 14:30:00 Outpatient CARLITA RAZA [id number] Dixie [facility] 2023-12-17 15:05:06 2023-12-17 15:05:06 Outpatient SFA CAMILO [id number] Ruben Son Isaias 2023-09-29 16:30:00 2023-09-29 16:30:00 Outpatient TROY VILLAVICENCIO [id number] Dixie Shankar 2023-09-22 16:41:00 2023-09-22 20:45:00 Emergency X ALEXANDER RIKIHUYEN [facility] ERT [id number] [facility] 2023-09-22 16:41:00 2023-09-22 20:45:00 Emergency X EKTA MUNOZ [facility] ERT [id number] [facility] 2023-09-22 16:41:00 2023-09-22 20:45:00 Emergency Ekta Munoz [facility] [id number] [id number] 4.2.7.2.686 [id number] [facility] 2023-02-12 12:37:00 2023-02-12 13:39:00 Emergency X INA BARON [facility] ERT [id number] [facility] 2023-02-12 12:37:00 2023-02-12 13:39:00 Emergency Ina Baron [facility] [id number] 350.1.13.10 4.2.7.2.686 [id number] [facility] Results Test Description Test Time Test Comments Results Result Co mments Source [facility] WO [id number] 07:09:33Exam: CT Thoracic and Lumbar Spine Without Contrast, ?09/03/2024 11:00 PM. Ordering Physician: NEDRA BARRY. History: Mid-back pain, infection suspected, no prior imaging . Comparison: ?None. Technique: CT thoracic and lumbar spine without intravenous contrast wasperformed. CT was performed according to ALARA (As Low As ReasonablyAchievable). Technical Quality: Adequate. Findings: CT Thoracic Spine:Vertebral Column: Vertebral body height and alignment are maintained.Intervertebral disc spaces are preserved. Multilevel bridging anteriorosteophytes. The endplates are preserved. No acute fracture. No evidence ofsignificant central canal stenosis. Paravertebral Tissues: Paraspinal soft tissues are unremarkable. No acutefinding in the visualized lungs. CT Lumbar Spine:Vertebral Column: No acutefracture or traumatic subluxation. Vertebralbody heights are maintained. Moderate to severe loss ofthe L2-P5zokutokiuxsvbv disc space with vacuum phenomena. Multilevel facetarthropathy. Posterior osteophyte disc complexes most pronounced at L2-3and L4-5 resulting in at least mild central canal stenosis. Paravertebral Tissues: Paraspinal soft tissues are unremarkable. No acutefinding in the visualized portions of the abdomen and pelvis.[facility] TH[facility] SPINE WO [id number] 07:09:33Exam: CT Thoracic and Lumbar Spine Without Contrast, ?09/03/2024 11:00 PM. Ordering Physician: NEDRA BARRY. History: Mid-back pain, infection suspected, no prior imaging . Comparison: ?None. Technique: CT thoracic and lumbar spine without intravenous contrast wasperformed. CT was performed according to ALARA (As Low As ReasonablyAchievable). Technical Quality: Adequate. Findings: CT Thoracic Spine :Vertebral Column: Vertebral body height and alignment are maintained.Intervertebral disc spaces are preserved. Multilevel bridging anteriorosteophytes. The endplates are preserved. No acute fracture. No evidence ofsignificant central canal stenosis. Paravertebral Tissues: Paraspinal soft tissues are unremarkable. No acutefinding in the visualized lungs. CT Lumbar Spine:Vertebral Column: No acutefracture or traumatic subluxation. Vertebralbody heights are maintained. Moderate to severe loss ofthe L2-G2kruwwkzwuaggox disc space with vacuum phenomena. Multilevel facetarthropathy. Posterior osteophyte disc complexes most pronounced at L2-3and L4-5 resulting in at least mild central canal stenosis. Paravertebral Tissues: Paraspinal soft tissues are unremarkable. No acutefinding in the visualized portions of the abdomen and pelvis.[facility] ABDOMEN PELVIS W [id number] 07:03:38Exam: CT Abdomen and Pelvis with contrast, 09/03/2024 11:00 PM. Ordering Physician: HENRY BARRY. History: Abdominal distension . Comparison: None. Technique: CT abdomen and pelvis was obtained with intravenous contrast. CTwas performed according to ALARA (As Low As Reasonably Achievable). Technical Quality: Adequate. Findings: LOWER CHEST:Stable pulmonary micronodules in the lung bases. Normal heart size.Multivessel coronary artery disease. Bibasilar atelectasis. ABDOMEN/PELVIS:Liver: No focal lesion.Gallbladder/biliary: Normal gallbladder. No biliary ductal dilation.Pancreas: Normal.Spleen: Normal. Adrenal glands: Normal.Kidneys and ureters: Normal.Bladder: Incompletely distended, which limits evaluation.Reproductive organs: Normal for age. Stomach/bowel: Colonic diverticulosis. No bowelwall thickening. Normalappendix. Lymph nodes: No lymphadenopathy.Peritoneum: No organized fluid collection or free air.Vessels: Atherosclerosis without aneurysm. MUSCULOSKELETAL:Soft tissues: Unremark able.Bones: No acute osseous abnormality.[facility] Sedimentation [id number] 06:01:10* Test Item Value Reference Range Interpretation Comme nts ESR (test code = 75803-9) 73 2-30 H Lab Interpretation (test cod e = 19558-4) Abnormal [facility] (NA, K, CL, CO2, GLUCOSE, BUN, CREATININE, CA)2024-09-04 05:41:28* Test Item Value Reference Range Interpretation Comme nts NA (test code = 3398171762) 129 mmol/L 135-145 L K (test code = 0539574326) 4.7 mmol/L 3.5-5.0 CL (test code = 7527179424) 95 mmol/L 98-108 L CO2 TOTAL (test code = 2058292142) 25 mmol/L 23-31 AGAP (test code = 5295704979) 9 2-16 BUN (test code = 6863842597) 17 mg/dL 7-23 GLUCOSE (test code = 5351509905) 222 mg/dL 70-110 H CREATININE (test code = 2160-0) 0.45 mg/dL 0.60-1.25 L CALCIUM (test code = 7695192257) 9.1 mg/dL 8.6-10.6 eGFR (test code = 20430-4) 116.9 mL/min/1.73m2 CKD-EPI eGFR (2020). Assuming creatinine has been stable day-to-day for at least three months, the eGFR indicates Category G1 (>= 90 mL/min/1.73 m2) Lab Interpretation (test code = 78683-3) Abnormal [facility] PAN[facility] (86672) (ALB,T.PRO,BILI T,BU/BC,ALT,AST,ALK PHOS)2024-09-04 05:41:28* Test Item Value Reference Range Interpretation Comme nts TOTAL BILI (test code = 8423236621) 0.8 mg/dL 0.1-1.1 BILI UNCON (test code = 8900281496) 1.1 mg/dL 0.1-1.1 BILI CONJ (test code = 7768581025) 0.0 mg/dL 0.0-0.3 T PROTEIN (test code = 4291420890) 6.8 g/dL 6.3-8.2 ALBUMIN (test code = 9026529992) 4.0 g/dL 3.5-5.0 ALK PHOS (test code = 5166409362) 99 U/L 34-122 ALTv (test code = 1742-6) 23 U/L 5-50 AST(SGOT) (test code = 9350056109) 21 U/L 13-40 Lab Interpretation (test cod e = 22252-8) Normal [facility]2025-01-12 05:41:28* Test Item Value Reference Range Interpretation Comme nts LIPASE (test code = 9020049262) 68 U/L 0-220 Lab Interpretation (test cod e = 68588-3) Normal [facility] WITH [id number] 05:20:11* Test Item Value Reference Range Interpretation Comme nts WBC (test code = 6690-2) 9.41 4.20-10.70 RBC (test code = 789-8) 4.86 4.26-5.52 HGB (test code = 718-7) 13.6 g/dL 12.2-16.4 HCT (test code = 4544-3) 38.6 % 38.4-49.3 MCV (test code = 787-2) 79.4 fL 81.7-95.6 L MCH (test code = 785-6) 28.0 pg 26.1-32.7 MCHC (test code = 786-4) 35.2 g/dL 31.2-35.0 H RDW-SD (test code = 86278-0) 36.0 fL 38.5-51.6 L RDW-CV (test code = 788-0) 12.7 % 12.1-15.4 PLT (test code = 777-3) 341 150-328 H MPV (test code = 20956-2) 10.0 fL 9.8-13.0 NRBC/100 WBC (test code = 1712563151) 0.0 0.0-10.0 NRBC x10^3 (test code = 1178865445) See_Comment [Automated messa ge] The system which generated this result transmitted reference range: 10*3/?L. The reference range was not used to interpret this result as normal/abnormal. GRAN MAT (NEUT) % (test code = 770-8) 64.8 % IMM GRAN % (test code = 6325927939) 0.30 % LYMPH % (test code = 736-9) 22.6 % MONO % (test code = 5905-5) 9.7 % EOS % (test code = 713-8) 2.2 % BASO % (test code = 706-2) 0.4 % GRAN MAT x10^3(ANC) (test code = 7169618865) 6.09 10*3/uL 1.99-6.95 IMM GRAN x10^3 (test code = 9460222954) 0.03 10*3/uL 0.00-0.06 LYMPH x10^3 (test code = 731-0) 2.13 10*3/uL 1.09-3.23 MONO x10^3 (test code = 742-7) 0.91 10*3/uL 0.36-1.02 EOS x10^3 (test code = 711-2) 0.21 10*3/uL 0.06-0.53 BASO x10^3 (test code = 704-7) 0.04 10*3/uL 0.01-0.09 Lab Interpretation (test code = 93618-7) Abnormal [facility] GLU[facility]SE (AUTOMATED)2024-08-24 19:17:59* Test Item Value Reference Range Interpretation Comme nts POCT GLU (test code = 0053333925) 261 mg/dL 70-110 H Lab Interpretation (test cod e = 86446-1) Abnormal [facility] IrvingTroponin [id number] 17:00:40* Test Item Value Reference Range Interpretation Comme nts TROPONIN I (test code = 2314592304) 0.004 ng/mL <=0.034 DIALLO (test code = DIALLO) Reference (Normal) Range (defined by the 99th percentile reference limit): <= 0.034 ng/mL Note: Cardiac troponin begins to rise 3-4 hours after the onset of ischemia. Repeat in 4-6 hours if the sample was drawn within 3-4 hours of the onset of the symptom and found normal. Diagnosis of myocardial injury is made with acute changes in cTn concentrations with at least one serial sample above the 99th percentile upper reference limit (URL), taken together with the patient's clinical presentation. Biotin has been reported to cause a negative bias, interpret results relative to patient's use of biotin. Lab Interpretation (test code = 17458-5) Normal [facility] with [id number] 16:59:00* Test Item Value Reference Range Interpretation Comme nts WBC (test code = 6690-2) 9.15 4.20-10.70 RBC (test code = 789-8) 4.81 4.26-5.52 HGB (test code = 718-7) 14.0 g/dL 12.2-16.4 HCT (test code = 4544-3) 39.3 % 38.4-49.3 MCV (test code = 787-2) 81.7 fL 81.7-95.6 MCH (test code = 785-6) 29.1 pg 26.1-32.7 MCHC (test code = 786-4) 35.6 g/dL 31.2-35.0 H RDW-SD (test code = 43062-1) 34.5 fL 38.5-51.6 L RDW-CV (test code = 788-0) 11.9 % 12.1-15.4 L PLT (test code = 777-3) 440 150-328 H MPV (test code = 22697-3) 10.0 fL 9.8-13.0 NRBC/100 WBC (test code = 5117564300) 0.0 0.0-10.0 NRBC x10^3 (test code = 6897175698) See_Comment [Automated LetMeGoa ge] The system which generated this result transmitted reference range: 10*3/?L. The reference range was not used to interpret this result as normal/abnormal. GRAN MAT (NEUT) % (test code = 770-8) 66.6 % IMM GRAN % (test code = 4517088409) 1.00 % LYMPH % (test code = 736-9) 22.8 % MONO % (test code = 5905-5) 7.1 % EOS % (test code = 713-8) 2.2 % BASO % (test code = 706-2) 0.3 % GRAN MAT x10^3(ANC) (test code = 0614202497) 6.09 10*3/uL 1.99-6.95 IMM GRAN x10^3 (test code = 3916221503) 0.09 10*3/uL 0.00-0.06 H LYMPH x10^3 (test code = 731-0) 2.09 10*3/uL 1.09-3.23 MONO x10^3 (test code = 742-7) 0.65 10*3/uL 0.36-1.02 EOS x10^3 (test code = 711-2) 0.20 10*3/uL 0.06-0.53 BASO x10^3 (test code = 704-7) 0.03 10*3/uL 0.01-0.09 Lab Interpretation (test code = 14588-1) Abnormal [facility] [place] [place]. Metabolic Panel (29362)2024-08-24 16:49:42* Test Item Value Reference Range Interpretation Comme nts NA (test code = 2916114841) 125 mmol/L 135-145 L K (test code = 6829770347) 3.8 mmol/L 3.5-5.0 CL (test code = 1235012337) 91 mmol/L 98-108 L CO2 TOTAL (test code = 7611796695) 24 mmol/L 23-31 AGAP (test code = 4337171415) 10 2-16 BUN (test code = 3040117411) 13 mg/dL 7-23 GLUCOSE (test code = 2147256132) 347 mg/dL 70-110 H CREATININE (test code = 2160-0) 0.55 mg/dL 0.60-1.25 L TOTAL BILI (test code = 4058138278) 1.0 mg/dL 0.1-1.1 CALCIUM (test code = 6304978365) 8.6 mg/dL 8.6-10.6 T PROTEIN (test code = 0841981466) 6.6 g/dL 6.3-8.2 ALBUMIN (test code = 6289125371) 3.8 g/dL 3.5-5.0 ALK PHOS (test code = 9416271666) 105 U/L 34-122 ALTv (test code = 1742-6) 25 U/L 5-50 AST(SGOT) (test code = 3512099890) 23 U/L 13-40 eGFR (test code = 85160-3) 110.0 mL/min/1.73m2 CKD-EPI eGFR (2020). Assuming creatinine has been stable day-to-day for at least three months, the eGFR indicates Category G1 (>= 90 mL/min/1.73 m2) Lab Interpretation (test code = 94445-8) Abnormal [facility] IrvingMagnesium2025-01-01 16:49:42* Test Item Value Reference Range Interpretation Comme nts MAGNESIUM (test code = 9352220807) 1.9 mg/dL 1.7-2.4 Lab Interpretation (test cod e = 11391-7) Normal [facility] IrvingLipase2025-01-01 16:49:21* Test Item Value Reference Range Interpretation Comme nts LIPASE (test code = 6865328738) 154 U/L 0-220 Lab Interpretation (test cod e = 03658-9) Normal [facility] Abdomen pelvis w [id number] 07:15:44Ordering physician: AFRNAZ CORRAL Indication: Acute abdominal pain, left-sided abdominal pain and fever,history of renal stones COMPARISON: None TECHNIQUE: Axial images of the abdomen and pelvis areperformed followingadministration of intravenous contrast material. Images were reformatted inthe coronal and sagittal plane. CT scan was performed according to ALARA(as low as reasonably achievable)policy. FINDINGS: There is mild dependent atelectasis in the lung bases. There isprominent coronaryarteriosclerosis and mitral valve calcification. Theliver, gallbladder, spleen, adrenal glands and p ancreas are within normallimits. The kidneys are normal in appearance bilaterally withouthydronephrosis or renal calculus. There is a vascular calcification in theleft kidney (series 2, image 54). Noabdominal aortic aneurysm ordissection is appreciated. There is a minimal umbilical hernia containingonly fat at the time of the exam. There is no free fluid in the pelvis. There is no bowel obstruction,widespread diverticulosis or acute diverticulitis. The appendix isidentified and within normal limits. There are fluid-filled nondilatedloops of distal small bowel, with mild mucosal enhancement. Bone windowsthrough the abdomen and pelvis demonstrate no osseous destructive lesion.There is diffuse degenerative disc disease of the lumbar spine, mostpronounced at L4-L5, where there is mild central canal stenosis andmoderate neural foraminal stenosis.[facility] Chest 1 [id number] 07:02:06Exam: Chest (1 View), 08/14/2024 12:00 AM. Ordering Physician: FARNAZ CORRAL. History: Fever. Technique: AP view of the chest. Technical Quality: Adequate. Comparison: None. Findings: Normal cardiac silhouette size. No airspace consolidation, pleuraleffusion, or pneumothorax. No acute osseous abnormality.[facility] [place] [place]. Metabolic Panel (93212)2024-08-14 05:24:07* Test Item Value Reference Range Interpretation Comme nts NA (test code = 2439401250) 129 mmol/L 135-145 L K (test code = 3224630410) 4.1 mmol/L 3.5-5.0 CL (test code = 2466486961) 97 mmol/L 98-108 L CO2 TOTAL (test code = 4064713890) 23 mmol/L 23-31 AGAP (test code = 9412923582) 9 2-16 BUN (test code = 1185511252) 15 mg/dL 7-23 GLUCOSE (test code = 2010500424) 210 mg/dL 70-110 H CREATININE (test code = 2160-0) 0.70 mg/dL 0.60-1.25 TOTAL BILI (test code = 8162887126) 0.7 mg/dL 0.1-1.1 CALCIUM (test code = 5903471036) 9.2 mg/dL 8.6-10.6 T PROTEIN (test code = 9663440928) 7.9 g/dL 6.3-8.2 ALBUMIN (test code = 5006766573) 4.6 g/dL 3.5-5.0 ALK PHOS (test code = 0727179648) 96 U/L 34-122 ALTv (test code = 1742-6) 26 U/L 5-50 AST(SGOT) (test code = 9152154166) 26 U/L 13-40 eGFR (test code = 26416-1) 102.3 mL/min/1.73m2 CKD-EPI eGFR (2020). Assuming creatinine has been stable day-to-day for at least three months, the eGFR indicates Category G1 (>= 90 mL/min/1.73 m2) Lab Interpretation (test code = 40455-8) Abnormal [facility] IrvingLipase2024-12-22 05:24:07* Test Item Value Reference Range Interpretation Comme nts LIPASE (test code = 6271211476) 72 U/L 0-220 Lab Interpretation (test cod e = 04414-1) Normal [facility] IrvingLactic Acid Whole [id number] 05:05:24* Test Item Value Reference Range Interpretation Comme nts LACTIC ACID (test code = 5038955778) 1.18 mmol/L 0.50-2.20 Lab Interpretation (test cod e = 21370-3) Normal [facility] IrvingCb with [id number] 05:02:44* Test Item Value Reference Range Interpretation Comme nts WBC (test code = 6690-2) 6.53 4.20-10.70 RBC (test code = 789-8) 5.16 4.26-5.52 HGB (test code = 718-7) 15.3 g/dL 12.2-16.4 HCT (test code = 4544-3) 43.1 % 38.4-49.3 MCV (test code = 787-2) 83.5 fL 81.7-95.6 MCH (test code = 785-6) 29.7 pg 26.1-32.7 MCHC (test code = 786-4) 35.5 g/dL 31.2-35.0 H RDW-SD (test code = 43743-4) 36.4 fL 38.5-51.6 L RDW-CV (test code = 788-0) 11.9 % 12.1-15.4 L PLT (test code = 777-3) 198 150-328 MPV (test code = 27847-2) 11.2 fL 9.8-13.0 NRBC/100 WBC (test code = 6698844267) 0.0 0.0-10.0 NRBC x10^3 (test code = 9958040940) See_Comment [Automated LetMeGoa ge] The system which generated this result transmitted reference range: 10*3/?L. The reference range was not used to interpret this result as normal/abnormal. GRAN MAT (NEUT) % (test code = 770-8) 71.2 % IMM GRAN % (test code = 7881898930) 0.30 % LYMPH % (test code = 736-9) 21.0 % MONO % (test code = 5905-5) 6.7 % EOS % (test code = 713-8) 0.2 % BASO % (test code = 706-2) 0.6 % GRAN MAT x10^3(ANC) (test code = 0861427617) 4.65 10*3/uL 1.99-6.95 IMM GRAN x10^3 (test code = 0636850212) 0.00-0.06 LYMPH x10^3 (test code = 731-0) 1.37 10*3/uL 1.09-3.23 MONO x10^3 (test code = 742-7) 0.44 10*3/uL 0.36-1.02 EOS x10^3 (test code = 711-2) 0.06-0.53 L BASO x10^3 (test code = 704-7) 0.04 10*3/uL 0.01-0.09 Lab Interpretation (test code = 06381-1) Abnormal [facility] HEAD WO [id number] 01:12:52EXAM: CT HEAD WO CONTRAST, CT CERVICAL SPINE WO CONTRAST HISTORY: 63 years-old Male; head injury COMPARISON: None TECHNIQUE: CT imaging of the head and cervical spine was obtained withoutIV contrast.Coronal and sagittal reformats were constructed. FINDINGS: HEAD: The ventricles and cerebral sulci are normal in caliber and configuration.No hydrocephalus, midline shift or pathological extra-axial f luidcollection is present. The basal cisterns are unremarkable. There is no acute intracranial hemorrhage or significant mass effect. Noparenchymal attenuation abnormality. The person-white matter differentiationis preserved. The mastoid air cells and paranasal air sinuses are clear. The calvariumandcentral skull base are unremarkable. Age-indeterminant bilateral nasal bone fractures partially visualized. CERVICAL SPINE: Normal cervical lordosis is preserved. The vertebral bodies are normal inheight and alignment. No acute fracture or traumatic malalignment. Thecraniocervical junction is intact. The intervertebral disc spaces arepreserved.[facility] CERVICAL SPINE WO [id number] 01:12:52EXAM: CT HEAD WO CONTRAST, CT CERVICAL SPINE WO CONTRAST HISTORY: 63 years-old Male; head injury COMPARISON: None TECHNIQUE: CT imaging of the head and cervical spine was obtained withoutIV contrast.Coronal and sagittal reformats were constructed. FINDINGS: HEAD: The ventricles and cerebral sulci are normal in caliber and configuration.No hydrocephalus, midline shift or pathological extra-axial fluidcollection is present. The basal cisterns are unremarkable. There is no acute intracranial hemorrhage or significant mass effect. Noparenchymal attenuation abnormality. The person-white matter diffe rentiationis preserved. The mastoid air cells and paranasal air sinuses are clear. The calvariumandcentral skull base are unremarkable. Age-indeterminant bilateral nasal bone fractures partially visualized. CERVICAL SPINE: Normal cervical lordosis is preserved. The vertebral bodies are normal inheight and alignment. No acute fracture or traumatic malalignment. Thecraniocervical junction is intact. The intervertebral disc spaces arepreserved.[facility] IrvingXR PELVIS <3 [id number] 00:45:46XR PELVIS <3 VW Indication: right pelvic pain after a fall Technique: A frontal view of the pelvis was submitted for interpretation. Comparison: None RL: Ordering Clinician: EKTA MUNOZ Technical Quality: Adequate Findings:No fractures or dislocations. No acute soft tissue abnormalities.[facility] IrvingXR WRIST 3+ VW [id number] 00:33:24Ordering physician:EKTA MUNOZ CLINICAL HISTORY: ? ?Left wrist pain TECHNIQUE: 3 views of theleft wrist COMPARISON: ?None FINDINGS: There is an acute comminuted intra-articular fracture of thedistal radius.The distal ulna appears intact. Probable cyst or ganglion within thescaphoid. Bony alignment is otherwise maintained. Soft tissue swelling ofthe wrist. Vascular calcifications.[facility]
[2024-09-19] MEDS ORDERED: NA CHLORIDE 0.9% 1,000 ML ONE (07:19)
[2024-09-19 07:29] LABS: Absolute Basophils 0.1 K/uL (0-0.5); Absolute Eosinophils 0.1 K/uL (0-0.5); Absolute Lymphocytes (CBC) 1.9 K/uL (0.7-4.9); Absolute Monocytes 0.7 K/uL (0.1-1.3); Absolute Neutrophil 5.7 K/uL (1.8-8.0); Eosinophils % 1.6 % (0-4.4); Hematocrit 43.8 % (39.6-49.0); Hemoglobin 14.9 g/dL (13.6-17.9); Lymphocytes % 22.8 % (15.3-44.8); MCH 27.9 pg (27.0-35.0); MCHC 33.9 g/dL (32.0-36.0); MCV 82.4 fL (80-100); MPV 7.8 fL (7.6-11.3); Monocytes % 8.1 % (3.3-12.3); Neutrophils % 66.5 % (41.7-73.7); Nucleated Red Blood Cells % 0.1 % (0-0); Platelets 500 thou/uL (152-406); RBC Red Blood Cell Count 5.32 M/uL (4.33-5.43); Red Cell Distribution Width 13.9 % (12.1-15.2)
[2024-09-19] MEDS ORDERED: MORPHINE 4 MG/ML SYR ONE (07:34)
[2024-09-19 07:45] LABS: ALT/SGPT 18 U/L (16-61); Albumin 3.7 g/dL (3.4-5.0); Albumin/Globulin Ratio 0.9 (1.1-1.8); Alkaline Phosphatase 106 U/L (45-117); Anion Gap 13.2 mEq/L (5.0-15.0); BUN Blood Urea Nitrogen 13 mg/dL (7-18); Bicarbonate 24 mEq/L (21-32); Bilirubin Total 0.7 mg/dL (0.2-1.0); Globulin 4.3 g/dL (2.3-3.5); Glomerular Filtration Rate 100 ml/min (=/>90); Glucose Level 253 mg/dL (74-106); Lipase 28 U/L (13-75); Potassium 4.2 mEq/L (3.5-5.1); Sodium Level 127 mEq/L (136-145)
[2024-09-19 07:46] LABS: AST/SGOT < 10 U/L (15-37)
--- NOTE | 2024-09-19 08:01 | RAD REPORT ---
EXAMINATION: CT ABDOMEN AND PELVIS WITH CONTRAST CLINICAL INDICATION: Abd pain;Constipation TECHNIQUE: CT abdomen and pelvis was performed, after the administration of IV contrast[facility]. Axial, sagittal and coronal reconstructions were obtained. One or more of the following dose reduction techniques were used: Automated exposure control, adjustment of the mA and k V according to patient size, and iterative reconstruction. Unless otherwise specified, incidental findings do not require dedicated imaging follow-up. COMPARISON: 09/12/2024 FINDINGS: LOWER CHEST: The visualized lung bases are clear. LIVER: Mild fatty liver is present. No focal lesion or biliary dilatation is seen. Grossly unremark able gallbladder. SPLEEN: Normal size. No focal lesion. PANCREAS: No mass, ductal dilation, or judson-pancreatic fluid. ADRENALS: Normal; no mass. KIDNEYS: Normal size and contour. No hydronephrosis. GASTROINTESTINAL TRACT: No evidence of free air, significant intra-abdominal free fluid, bowel obstru ction or abscess. Moderate stool is retained throughout the colon. APPENDIX: Normal appendix. LYMPH NODES: No lymphadenopathy. MUSCULOSKELETAL: Prominent calcified disc bulges multilevel lumbar spine. ADDITIONAL FINDINGS: None. IMPRESSION: No acute or concerning abnormalities seen in the abdomen or pelvis. Fatty liver.
[2024-09-19] MEDS ORDERED: MAGNESIUM CITRATE 300 ML BOT ONE (08:47)
--- NOTE | 2024-09-19 09:56 | ER ---
Nurse's Notes [facility] Name: Jonah Whitaker Age: 64 yrs Sex: Male : 1960 Arrival Date: 09/19/2024 Time: 06:45 Bed 5 Private MD: Diagnosis: Constipation, unspecified;Abdominal pain, unspecified Presentation: 09/19 07:09 Chief complaint: Patient states: generalized abd pain x 1 month and constipation x 4 ss days. Coronavirus screen: Client denies travel out of the [place] in the last 14 days. Ebola Screen: Patient denies exposure to infectious person. Patient denies travel to an Ebola-affected area in the 21 days before illness onset. Initial Sepsis Screen: Does the patient meet any 2 criteria? No. Patient's initial sepsis screen is negative. Does the patient have a suspected source of infection? No. Patient's initial sepsis screen is negative. Risk Assessment: Do you want to hurt yourself or someone else? Patient reports no desire to harm self or others. Onset of symptoms is unknown. 07:09 Method Of Arrival: Ambulatory ss 07:09 Acuity: CESAR 3 ss Triage Assessment: 07:30 General: Appears in no apparent distress. uncomfortable, Behavior is cooperative, bp appropriate for age, anxious. Pain: Complains of pain in abdomen. EENT: No deficits noted. Neuro: No deficits noted. Cardiovascular: No deficits noted. Respiratory: No deficits noted. GI: Reports constipation. : No signs and/or symptoms were reported regarding the genitourinary system. Derm: No deficits noted. Musculoskeletal: No deficits noted. Historical: - Allergies: 07:11 No Known Allergies; ss - PMHx: 07:11 diabetes mellitus; Hypertensive disorder; ss - Immunization history:: Adult Immunizations up to date. - Infectious Disease History:: Denies. - Family history:: not pertinent. - Hospitalizations: : No recent hospitalization is reported. - Social history:: Smoking status: Patient denies any tobacco usage or history of. Screenin:57 [facility] ED Fall Risk Assessment (Adult) History of falling in the last 3 months, bp including since admission No falls in past 3 months (0 pts) Confusion or Disorientation No (0 pts) Intoxicated or Sedated No (0 pts) Impaired Gait No (0 pts) Mobility Assist Device Used No (0 pt) Altered Elimination No (0 pt) Score/Fall Risk Level 0 - 2 = Low Risk Oriented to surroundings. Abuse screen: Denies threats or abuse. Denies injuries from another. Nutritional screening: No deficits noted. Tuberculosis screening: No symptoms or risk factors identified. Assessment: 07:30 General: SEE TRIAGE. bp 08:57 Reassessment: Patient appears in no apparent distress at this time. Patient is alert, bp oriented x 3, equal unlabored respirations, skin warm/dry/pink. 10:43 Reassessment: Patient appears in no apparent distress at this time. No changes from ld1 previously documented assessment. Patient and/or family updated on plan of care and expected duration. Pain level reassessed. Patient is alert, oriented x 3, equal unlabored respirations, skin warm/dry/pink. Vital Signs: 07:09 BP 147 / 114; Pulse 108; Resp 17; Temp 98(O); Pulse Ox 99% on R/A; Weight 79.38 kg; ss Height 5 ft. 6 in. ; Pain 10/10; 07:11 BP 144 / 107; ss 10:43 BP 139 / 98; Pulse 98; Resp 18; Pulse Ox 100% on R/A; ld1 07:09 Body Mass Index 28.25 (79.38 kg, 167.64 cm) ss 07:09 Pain Scale: Adult ss ED Course: 06:47 Patient arrived in ED. [id number] 07:01 Rizwan Suarez MD is Attending Physician. rn 07:05 Germán Sweet, GREGORY is Primary Nurse. bp 07:11 Triage completed. ss 07:19 Initial lab(s) drawn, by mo, sent to lab. Inserted saline lock: 20 gauge in right cc6 antecubital area, using aseptic technique. Blood collected. Flushed with 10 mL NS. 07:20 CBC with Diff Sent. cc6 07:20 CMP Sent. cc6 07:20 Lipase Sent. cc6 07:30 Arm band placed on. bp 07:47 CT Abd/Pelvis - IV Contrast Only In Process Unspecified. EDMS 08:57 Patient has correct armband on for positive identification. bp 10:43 No provider procedures requiring assistance completed. IV discontinued, intact, ld1 bleeding controlled, No redness/swelling at site. Administered Medications: 07:45 Drug: NS 0.9% IV 1000 ml IV at 1 bolus Per protocol; to be given as a bolus over 60 bp minutes Route: IV; Rate: 1 bolus; Site: right antecubital; 07:45 Drug: morphine IVP or IV 4 mg IVP once over 4 mins Route: IVP; Infused Over: 4 mins; bp Site: right antecubital; :43 Follow up: Response: No adverse reaction ld1 :43 Drug: Magnesium Citrate PO Liquid 300 ml PO once Route: PO; ld1 Medication: 10:43 VIS not applicable for this client. ld1 Outcome: 09:56 Discharge ordered by . rn 10:43 Discharged to home ambulatory, with family, ld1 : Condition: stable :43 Discharge instructions given to patient, family, Instructed on discharge instructions, follow up and referral plans. medication usage, Demonstrated understanding of instructions, follow-up care, medications, Prescriptions given X 1, :44 Patient left the ED. ld1 Signatures: Dispatcher [employer] EDMS Rizwan Suarez MD MD rn Blanchard, Shelby, RN RN ss Peltier, Brian, RN RN bp Sims, Lauren, RN RN ld1 Ashley Vu jj6 Lynne Wray cc6
--- NOTE | 2024-09-19 09:56 | EDPHYS ---
Physician Documentation [facility] Name: Jonah Whitaker Age: 64 yrs Sex: Male : 1960 Arrival Date: 09/19/2024 Time: 06:45 Bed 5 Private MD: ED Physician Rizwan Suarez HPI: 09/19 07:31 This 64 yrs old Male presents to ER via Ambulatory with complaints of rn Abdominal Pain, Constipation. 07:31 The patient presents with abdominal pain in the lower abdomen. Onset: The rn symptoms/episode began/occurred 1 month(s) ago. 07:32 The symptoms do not radiate. Associated signs and symptoms: Pertinent positives: rn constipation, Pertinent negatives: blood in stools, fever, hematuria. The symptoms are described as crampy. Modifying factors: The symptoms are alleviated by nothing, the symptoms are aggravated by nothing. Severity of pain: At its worst the pain was mild in the emergency department the pain is unchanged. The patient has experienced similar episodes in the past. Patient reports lower abdominal pain associated with constipation for at least 1 month. Seen here recently last week without acute findings. Patient states has been to multiple hospitals and has seen GI without clear etiology. No blood in stool. Is passing gas. No fever or chills. No trauma. No urinary symptoms.. Historical: - Allergies: 07:11 No Known Allergies; ss - PMHx: 07:11 diabetes mellitus; Hypertensive disorder; ss - Immunization history:: Adult Immunizations up to date. - Infectious Disease History:: Denies. - Family history:: not pertinent. - Hospitalizations: : No recent hospitalization is reported. - Social history:: Smoking status: Patient denies any tobacco usage or history of. ROS: 07:32 Constitutional: Negative for fever, chills, and weight loss, Cardiovascular: Negative rn for chest pain, palpitations, and edema, Respiratory: Negative for shortness of breath, cough, wheezing, and pleuritic chest pain, Abdomen/GI: Positive for lower abdominal pain and constipation Back: Negative for injury and pain, : Negative for injury, bleeding, discharge, and swelling, MS/Extremity: Negative for injury and deformity, Skin: Negative for injury, rash, and discoloration, Neuro: Negative for headache, weakness, numbness, tingling, and seizure, Exam: 07:32 Constitutional: This is a well developed, well nourished patient who is awake, alert, rn and in no acute distress. Ambulatory to room without difficulty or assistance Cardiovascular: Tachycardic, regular. Respiratory: No increased work of breathing, no retractions or nasal flaring. Abdomen/GI: Soft, mild right lower quadrant and left lower quadrant tenderness. No rebound or guarding. MS/ Extremity: Pulses equal, no cyanosis. Neurovascular intact. Full, normal range of motion. Equal circumference. Neuro: Awake and alert, GCS 15 Vital Signs: 07:09 BP 147 / 114; Pulse 108; Resp 17; Temp 98(O); Pulse Ox 99% on R/A; Weight 79.38 kg; ss Height 5 ft. 6 in. ; Pain 10/10; 07:11 BP 144 / 107; ss 10:43 BP 139 / 98; Pulse 98; Resp 18; Pulse Ox 100% on R/A; ld1 07:09 Body Mass Index 28.25 (79.38 kg, 167.64 cm) ss 07:09 Pain Scale: Adult ss MDM: 07:01 Medical Screening Exam initiated rn 09:53 Differential diagnosis: cholecystitis, Cholelithiasis, diverticulitis, gastritis, rn gastroesophageal reflux disease, non-specific abd pain, Constipation, kidney stone, bowel obstruction. Data reviewed: vital signs, nurses notes, lab test result(s), radiologic studies, CT scan, and as a result, I will discharge patient. Counseling: I had a detailed discussion with the patient and/or guardian regarding the historical points, exam findings, and any diagnostic results supporting the discharge/admit diagnosis, lab results, radiology results, the need for outpatient follow up, to return to the emergency department if symptoms worsen or persist or if there are any questions or concerns that arise at home. Special discussion: Based on the patient's Hx, exam, and Dx evaluation, there is no indication for emergent surgery or inpatient Tx. It is understood by the patient/guardian that if the Sx's persist or worsen they need to return immediately for re-evaluation. I discussed with the patient/guardian in detail that at this point there is no indication for admission to the hospital. It is understood, however, that if the symptoms persist or worsen the patient needs to return immediately for re-evaluation. Based on the history and exam findings, there is no indication for further emergent testing or inpatient evaluation. I discussed with the patient/guardian the need to see the paraprofessional aide teacher for further evaluation of the symptoms. ED course: No acute findings and workup including CT abdomen pelvis. Patient is constipated. Had a long talk with him regarding pain medication and worsening of constipation. Will discharge home with magnesium citrate and stool regimen with return precautions and GI follow-up. I have personally reviewed all of the results, including but not limited to blood tests and imaging deemed necessary to safely discharge this patient at this time. All results given to and printed out for patient. I personally went over all the results with the patient and answered all questions. Patient will follow-up with PCP and or specialist as discussed. Return precautions given and understood.. 09/19 07:06 Order name: CBC with Diff; Complete Time: 07:44 rn 09/19 07:06 Order name: CMP; Complete Time: 08:07 rn 09/19 07:06 Order name: Lipase; Complete Time: 08:07 rn 09/19 07:06 Order name: CT Abd/Pelvis - IV Contrast Only; Complete Time: 08:07 rn 09/19 07:06 Order name: IV Saline Lock; Complete Time: 07:19 rn 09/19 07:06 Order name: Labs collected and sent; Complete Time: 07:19 rn Administered Medications: 07:45 Drug: NS 0.9% IV 1000 ml IV at 1 bolus Per protocol; to be given as a bolus over 60 bp minutes Route: IV; Rate: 1 bolus; Site: right antecubital; 07:45 Drug: morphine IVP or IV 4 mg IVP once over 4 mins Route: IVP; Infused Over: 4 mins; bp Site: right antecubital; 10:43 Follow up: Response: No adverse reaction ld1 10:43 Drug: Magnesium Citrate PO Liquid 300 ml PO once Route: PO; ld1 Disposition Summary: 09/19/24 09:56 Discharge Ordered Notes: Location: Home rn Problem: an ongoing problem rn Symptoms: are unchanged rn Condition: Stable rn Diagnosis - Constipation, unspecified rn - Abdominal pain, unspecified rn Followup: rn - With: Private Physician - When: As needed - Reason: Recheck today's complaints, Re-evaluation by your physician Discharge Instructions: - Discharge Summary Sheet rn - Abdominal Pain, Adult rn - Constipation, Adult rn Forms: - Medication Reconciliation Form rn - Antibiotic wrap turner - Prescription Opioid Use rn - Patient Portal Instructions rn - Leadership Thank You Letter rn Signatures: Dispatcher [employer] Rizwan Torres MD MD rn Blanchard, Shelby RN RN Germán Zurita RN RN Sharda Mora RN RN ld1
[2024-09-19 12:39] VITALS: TEMP 98
[2024-09-19 12:41] VITALS: BP 139/98; O2SAT 100
== END 2024-09-19 10:44 | disposition home or self-care (01) ==
LOC: ER 06:45
DX: K59.00 Constipation, unspecified (principal); R10.9 Unspecified abdominal pain; E11.9 Type 2 diabetes mellitus without complications; I10 Essential (primary) hypertension
CPT/HCPCS: 85025; 36415; 83690; 80053; 74177; Q9967; J7030; 96374; 99284

== ENCOUNTER 2024-09-29 12:27 | Emergency (ER) | payer OTHER ==
--- OUTSIDE RECORDS SUMMARY | 2024-09-29 12:31 | XMS REPORT | Continuity of Care Document ---
Author Name Unknown Address [address] [facility] [address] [place] [address] [facility] Address [address] [place] [address] Care Team Providers Care Product Developer Name Role Phone PCP, PATIENT DOES NOT HAVE A Primary Care Physic marco Unavailable QUINTEN LAZAR Attending Clinician Unavailable TRAVIS OLEARY Attending Clinician UnavailTOD Wheat Attending Clinician Unavailable TOD RODAS Attending Clinician Unavailable TOD RODAS Attending Clinician Unavailable Henry Barry MD Attending Clinician [phone] Mihir Soni MD Attending Clinician [phone] Tod Rodas DO Attending Clinician [phone] [id number] Attending Clinician Unavailable Campaigns, Generic Provider Attending Clinician Unavailable MEE ALONZO Attending Clinician Unavailable [id number] Attending Clinician Unavailable Jose Antonio Mckeon Attending Clinician [phone] Jose Antonio NGUYEN Attending Clinician Unavailable Jose Antonio NGUYEN Attending Clinician Unavailable FARNAZ CORRAL Attending Clinician Unavailable FARNAZ CORRAL Attending Clinician Unavailable Farnaz Sun Attending Clinician [phone] CARLITA RAZA Attending Clinician Unavailable TROY VILLAVICENCIO Attending Clinician EKTA Lopez Attending Clinician UnavailINA Cast Attending Clinician Unavailable Ina Baron MD Attending Clinician HENRY BARRY Admitting Clinician Unavailable FARNAZ CORRAL Admitting Clinician Unavailable EKTA MUNOZ Admitting Clinician UnavailINA Cast Admitting Clinician Unavailable Payers Payer Name Policy Type Policy Number Effective Date Expirati on Date Source RAJI Hudson BOOK CANVASSER 94 9 [id number] 2024 00:00:00 MEDICARE PART A \T\ B [id number] 2024 00:00:00 EDNA Gonzalez/ DIXIE WERNER [id number] 2023 00:00:00 Problems Condition Name Condition Details Condition Category Status Onset Date Resolution Date Last Treatment Date Treating Clinician Comments Source Gastroesop hageal reflux disease with esophagiti s without hemorrhage Gastroesop hageal reflux disease with esophagiti s without hemorrhage Disease Active 09-27 00:00: 00 Dixie Seybold - Externa l H. pylori infection H. 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, without long-term current use of insulin (multi HCC) Disease Active 08-31 00:00: 00 Dixie Seybold - Externa l Other constipati on Other constipati on Disease Active 08-31 00:00: 00 Dixie Seybold - Externa l Acute cystitis without hematuria Acute cystitis without hematuria Disease Active 08-31 00:00: 00 Dixie Seybold - Externa l Hyponatrem ia Hyponatrem ia Disease Active 08-31 00:00: 00 Dixie Seybold - Externa l Diabetes mellitus type 2, noninsulin dependent (multi HCC) Diabetes mellitus type 2, noninsulin dependent (multi HCC) Disease Active 08-31 00:00: 00 Dixie saini DM type 2 with diabetic mixed hyperlipid emia (multi HCC) DM type 2 with diabetic mixed hyperlipid emia (multi HCC) Disease Active 08-29 00:00: 00 Dixie saini Kidney stone Kidney stone Disease Active 2023-08 00:00: 00 Dixie saini Allergies, Adverse Reactions, Alerts Allergy Name Allergy Type Status Severity Reaction(s) Onset Date Inactive Date Treating Clinician Comments Source NO KNOWN ALLERGIE S Drug Class Active [facility] Social History Social Habit Start Date Stop Date Quantity Comments Source History of tobacco use Cigarette Smoker Dixie Pettit External Sexual orientation [facility] Alcoholic beverage intake 2024-08-31 00:00:00 2024-08-31 00:00:00 [...] Stop Date Source Tobacco smoking consumption unknown [facility] Occasional tobacco smoker 2024-08-25 00:00:00 Dixie Pettit External Medications Ordered Medication Name Filled Medication Name Start Date Stop Date Current Medication? Ordering Clinician Indication Dosage Frequency Signature (SIG) Comments Components Source Atorvastati n Calcium 20 MG oral Tablet 2- 00:00: 00 09-27 00:00 :00 Yes [id number] 20mg QD Take 1 tablet (20 mg total) by mouth nightly. Dixie saini cefTRIAXone (ROCEPHIN) 1,000 mg in water for injection, sterile 10 mL IV Push 09-04 17:15: 00 09-04 17:06 :00 No 1000mg 1,000 mg, Intravenou s, ONCE, 1 dose, On 09/04/24 at 1115, 10 mL, Reason for Anti-Infec tive: Empiric Therapy for Suspected Infection, Empiric Therapy Site: Urine, Duration of therapy: Once (ED) [facility] HYDROcodone -acetaminop hen (NORCO 5) tablet 1 tablet 09-04 15:30: 00 09-04 15:59 :00 No 1{tbl} 1 tablet, Oral, ONCE, 1 dose, On 09/04/24 at 0930, NANCI [facility] morpHINE injection 4 mg 09-04 07:30: 00 09-04 07:30 :00 No 4mg 4 mg, Slow IV Push, ONCE, 1 dose, On 09/04/24 at 0130, STAT [facility] iopamidol (ISOVUE 370-500 mL) injection 100 mL 09-04 06:30: 00 09-04 06:30 :00 No [id number] 100mL 100 mL, Intravenou s, ONCE, 1 dose, On 09/04/24 at 0030, Routine [facility] ketorolac (TORADOL) injection 15 mg 09-04 06:00: 00 09-04 05:13 :00 No 15mg 15 mg, Slow IV Push, ONCE, 1 dose, On 09/04/24 at 0000, NANCI [facility] methocarbam oL (ROBAXIN) injection 1,000 mg 09-04 05:45: 00 09-04 05:13 :00 No 1000mg 1,000 mg, Slow IV Push, ONCE, 1 dose, On 09/03/24 at 2345, Routine [facility] NaCl 0.9% (NS) bolus infusion 1,000 mL 09-04 05:45: 00 09-04 06:12 :00 No 1000mL at 999 mL/hr, 1,000 mL, IV Infusion, ONCE, 1 dose, On 09/03/24 at 2345, NANCI [facility] morpHINE injection 4 mg 09-04 05:00: 00 09-04 05:13 :00 No 4mg 4 mg, Slow IV Push, ONCE, 1 dose, On 09/03/24 at 2300, STAT [facility] ibuprofen 600 mg tablet 09-04 00:00: 00 Yes [id number] 600mg Take 1 tablet by mouth every 6 (six) hours as needed for Pain (scale 4-6). [facility] traMADoL 50 mg tablet 09-04 00:00: 00 Yes [id number] 50mg Take 1 tablet by mouth every 6 (six) hours as needed for Pain (scale 1-3). Indication s: acute pain [facility] cephALEXin 500 mg capsule 09-04 00:00: 00 09-12 05:59 :00 Yes [id number] 500mg Take 1 capsule by mouth in the morning and 1 capsule in the evening. Do all this for 7 days. [facility] Naproxen (Naprosyn) 500 MG oral Tablet 08-31 11:30: 22 08-31 00:00 :00 No 500mg Take 1 tablet (500 mg total) by mouth in the morning and 1 tablet (500 mg total) in the evening. Take with meals. Dixie saini Atorvastati n Calcium 20 MG oral Tablet 08-31 00:00: 00 Yes [id number] 3 20mg QD Take 1 tablet (20 mg total) by mouth nightly. Dixie saini Gabapentin 100 MG oral Capsule 08-31 00:00: 00 Yes [id number] 100mg Q.5D Take 1 capsule (100 mg total) by mouth 2 times daily as needed. Dixie saini glipiZIDE 5 MG oral Tablet 08-31 00:00: 00 Yes [id number] 5mg Take 1 tablet (5 mg total) by mouth daily (before a meal). Dixie saini Metformin HCl 500 MG oral Tablet 08-31 00:00: 00 Yes [id number] 500mg Take 1 tablet (500 mg total) by mouth in the morning and 1 tablet (500 mg total) in the evening. Take with meals. Dixie saini Blood Glucose Monitoring Suppl (Blood Glucose Monitor System) w/Device does not apply Kit 08-31 00:00: 00 Yes [id number] 3 Check BS twice daily. Dixie saini Glucose Blood in vitro Strip 08-31 00:00: 00 Yes [id number] 3 Check BS twice daily. Dixie saini Lancets 30G does not apply Misc 08-31 00:00: 00 Yes [id number] 3 Check BS twice daily. Dixie saini Amoxicillin (AMOXIL) 500 MG oral Capsule 08-29 00:00: 00 09-06 05:59 :00 Yes [id number] 500mg Q.[id number] 3D Take 1 capsule (500 mg total) by mouth 3 times daily for 7 days. Dixie saini Atorvastati n Calcium 20 MG oral Tablet 08-29 00:00: 00 08-31 00:00 :00 No [id number] 20mg QD Take 1 tablet (20 mg total) by mouth daily. Dixie saini Metformin HCl 500 MG oral Tablet 08-29 00:00: 00 08-31 00:00 :00 No [id number] 500mg Take 1 tablet (500 mg total) [...] 08-25 00:00: 00 08-31 00:00 :00 No [id number] .4mg Take 1 capsule (0.4 mg total) by mouth every night at bedtime. Dixie saini metFORMIN (GLUCOPHAGE ) tablet 500 mg 08-24 23:00: 00 Yes 500mg 500 mg, Oral, BID MEALS, First dose on Thu08/24/24 at 1700, Until Discontinu ed, Routine [facility] ketorolac (TORADOL) injection 15 mg 08-24 19:30: 00 08-24 18:24 :00 No 15mg 15 mg, Slow IV Push, ONCE, 1 dose, On Thu08/24/24 at 1330, NANCI [facility] NaCl 0.9% (NS) bolus infusion 1,000 mL 08-24 17:45: 00 08-24 19:18 :00 No 1000mL at 999 mL/hr, 1,000 mL, IV Infusion, ONCE, 1 dose, On Thu08/24/24 at 1145, STAT [facility] acetaminoph en (TYLENOL) tablet 1,000 mg 08-24 16:45: 00 08-24 16:48 :00 No 1000mg 1,000 mg, Oral, ONCE, 1 dose, On Thu08/24/24 at 1045, Routine [facility] naproxen (NAPROSYN) 500 mg tablet 08-24 00:00: 00 Yes [id number] 500mg Take 1 tablet by mouth in the morning and 1 tablet in the evening. Take with meals. [facility] metFORMIN 500 mg tablet 08-24 00:00: 00 Yes [id number] 500mg Take 1 tablet by mouth in the morning and 1 tablet in the evening. [facility] iopamidol (ISOVUE 370-500 mL) injection 85 mL 2023-08 07:30: 00 08-14 07:30 :00 No [id number] 85mL 85 mL, Intravenou s, ONCE, 1 dose, On 12/22/24 at 0130, Routine [facility] ibuprofen (IBU) tablet 600 mg 2023-08 05:00: 00 08-14 05:05 :00 No 600mg 600 mg, Oral, ONCE, 1 dose, On 08/13/24 at 2300, [facility] diphenhydrA MINE (BENADRYL) tablet 25 mg 2023-08 05:00: 00 08-14 05:05 :00 No 25mg 25 mg, Oral, ONCE, 1 dose, On 08/13/24 at 2300, [facility] NaCl 0.9% (NS) IV infusion 1,000 mL 2023-08 04:51: 00 08-14 07:10 :00 No 1000mL at 999 mL/hr, Intravenou s, ONCE, 1 dose, On 08/13/24 at 2300, [facility] ondansetron 4 mg disintegrat ing tablet 2023-08 00:00: 00 Yes [id number] 4mg Take 1 tablet by mouth every 8 (eight) hours as needed for Nausea and Vomiting (N/V). [facility] Dicyclomine HCl 10 MG oral Capsule 2023-08 00:00: 00 08-31 00:00 :00 No 10mg Q.[id number] 3D Take 1 capsule (10 mg total) by mouth 3 times daily as needed. Dixie saini Tamsulosin HCl 0.4 MG oral Capsule 2023-08 00:00: 00 08-25 00:00 :00 No [id number] .4mg Take 1 capsule (0.4 mg total) by mouth every night at bedtime. Dixie saini Ketorolac Tromethamin e 10 MG oral Tablet 2023-08 00:00: 00 08-25 00:00 :00 No [id number] 10mg Q.25D Take 1 tablet (10 mg total) by mouth every 6 hours as needed for pain. Dixie saini Acetaminoph en-Codeine 300-30 MG oral Tablet -06 00:00: 00 10-07 05:59 :00 No [id number] 1{tbl} Q.25D Take 1-2 tablets by mouth every 6 hours as needed for up to 7 days. Dixie saini FENTanyl PF (SUBLIMAZE (PF)) injection 50 mcg 09-23 00:45: 00 09-23 00:57 :00 No 50ug 50 mcg, Intramuscu lar, ONCE, 1 dose, On Thu09/22/23 at 1845, Routine [facility] Acetaminoph en-Codeine 300-30 MG oral Tablet 09-22 00:00: 00 09-29 00:00 :00 No 1{tbl} Q.25D Take 1 tablet by mouth every 6 hours as needed. Dixie saini HYDROcodone -acetaminop hen (NORCO) 10-325 mg tablet 1 tablet 02-12 19:15: 00 02-12 18:31 :00 No 1{tbl} 1 tablet, Oral, ONCE, 1 dose, On Thu02/12/23 at 1415, Routine [facility] HYDROcodone -acetaminop hen 5-325 mg tablet 02-12 00:00: 00 02-20 04:59 :00 No [id number] 1{tbl} Take 1-2 tablets by mouth every 6 (six) hours as needed for Pain (scale 1-3) for up to 7 days. Indication s: acute pain [facility] Vital Signs Vital Name Observation Time Observation Value Comments S ource Systolic blood pressure 2024-09-27 17:51:00 138 mm[Hg] Dixie toledo - External Diastolic blood pressure 2024-09-27 17:51:00 90 mm[Hg] Dixie toledo - External Heart rate 2024-09-27 17:51:00 102 /min Al Shankar - External Body temperature 2024-09-27 17:51:00 36.89 [place] Dixie Shankar - External Respiratory rate 2024-09-27 17:51:00 18 /min Dixie Seybold - External Body height 2024-09-27 17:51:00 167.6 cm Edie ey Seybold - External Body weight 2024-09-27 17:51:00 78.926 kg Edie ey Seybold - External BMI 2024-09-27 17:51:00 28.08 kg/m2 Edie ey Seybold - External Oxygen saturation in Arterial blood by Pulse oximetry 2024-09-27 17:51:00 99 /min Dixie Estradaybo ld - External Systolic blood pressure 2024-09-04 17:15:00 130 mm[Hg] [facility] Diastolic blood pressure 2024-09-04 17:15:00 89 mm[Hg] [facility] Heart rate 2024-09-04 17:15:00 82 /min [facility] Respiratory rate 2024-09-04 17:15:00 18 /min [facility] Oxygen saturation in Arterial blood by Pulse oximetry 2024-09-04 17:15:00 99 /min [facility] Body temperature 2024-09-04 12:37:00 36.72 [place] [facility] Body weight 2024-09-04 04:22:00 80.287 kg [facility] BMI 2024-09-04 04:22:00 28.57 kg/m2 [facility] Systolic blood pressure 2024-08-31 17:12:00 130 mm[Hg] Dixie Estradaybo ld - External Diastolic blood pressure 2024-08-31 17:12:00 70 mm[Hg] Dixie Seybo ld - External Heart rate 2024-08-31 17:12:00 86 /min Kelse y Seybold - External Body temperature 2024-08-31 17:12:00 37 [place] Dixie Seybold - External Respiratory rate 2024-08-31 17:12:00 18 /min Dixie Seybold - External Body height 2024-08-31 17:12:00 167.6 cm Edie ey Seybold - External Body weight 2024-08-31 17:12:00 80.06 kg Edie ey Seybold - External BMI 2024-08-31 17:12:00 28.49 kg/m2 Edie ey Seybold - External Oxygen saturation in Arterial blood by Pulse oximetry 2024-08-31 17:12:00 98 /min Dixie Harvey ld - External Systolic blood pressure 2024-08-25 20:45:00 138 mm[Hg] Dixie Harvey ld - External Diastolic blood pressure 2024-08-25 20:45:00 88 mm[Hg] Dixie Harvey ld - External Heart rate 2024-08-25 20:45:00 88 /min Al Shankar - External Body temperature 2024-08-25 20:45:00 36.94 [place] Dixie Shankar - External Respiratory rate 2024-08-25 20:45:00 18 /min Dixie Shankar - External Body height 2024-08-25 20:45:00 167.6 cm Edie Shankar - External Body weight 2024-08-25 20:45:00 80.287 kg Edie Shankar - External BMI 2024-08-25 20:45:00 28.57 kg/m2 Edie Shankar - External Systolic blood pressure 2024-08-24 20:00:00 159 mm[Hg] [facility] Diastolic blood pressure 2024-08-24 20:00:00 85 mm[Hg] [facility] Heart rate 2024-08-24 20:00:00 70 /min [facility] Body temperature 2024-08-24 20:00:00 36.67 [place] [facility] Respiratory rate 2024-08-24 20:00:00 18 /min [facility] Oxygen saturation in Arterial blood by Pulse oximetry 2024-08-24 20:00:00 98 /min [facility] Body height 2024-08-24 16:15:00 167.6 cm [facility] Body weight 2024-08-24 16:15:00 81.647 kg [facility] BMI 2024-08-24 16:15:00 29.05 kg/m2 [facility] Heart rate 2024-08-14 08:44:00 71 /min [facility] Body temperature 2024-08-14 08:44:00 36.78 [place] [facility] Oxygen saturation in Arterial blood by Pulse oximetry 2024-08-14 08:44:00 97 /min [facility] Systolic blood pressure 2024-08-14 08:00:00 95 mm[Hg] [facility] Diastolic blood pressure 2024-08-14 08:00:00 62 mm[Hg] [facility] Respiratory rate 2024-08-14 08:00:00 15 /min [facility] Body height 2024-08-14 04:16:00 167.6 cm [facility] Body weight 2024-08-14 04:16:00 81.647 kg [facility] BMI 2024-08-14 04:16:00 29.05 kg/m2 [facility] Systolic blood pressure 2024-06-02 19:29:00 [...] Body temperature 2023-09-29 22:33:00 36.83 [place] Dixie Seybold - External Respiratory rate 2023-09-29 22:33:00 18 /min Dixie Seybold - External Body height 2023-09-29 22:33:00 167.6 cm Edie ey Seybold - External Body weight 2023-09-29 22:33:00 83.093 kg Edie paez Seybold - External BMI 2023-09-29 22:33:00 29.57 kg/m2 Edie Shankar - External Oxygen saturation in Arterial blood by Pulse oximetry 2023-09-29 22:33:00 98 /min Dixie Harvey ld - External Systolic blood pressure 2023-09-29 22:33:00 138 mm[Hg] Dixie Harvey ld - External Systolic blood pressure 2023-09-23 02:40:00 142 mm[Hg] [facility] Diastolic blood pressure 2023-09-23 02:40:00 87 mm[Hg] [facility] Heart rate 2023-09-23 02:40:00 76 /min [facility] Respiratory rate 2023-09-23 02:40:00 18 /min [facility] Oxygen saturation in Arterial blood by Pulse oximetry 2023-09-23 02:40:00 99 /min [facility] Body temperature 2023-09-22 22:37:00 36.5 [place] [facility] Body height 2023-09-22 22:37:00 167.6 cm [facility] Body weight 2023-09-22 22:37:00 90.719 kg [facility] BMI 2023-09-22 22:37:00 32.28 kg/m2 [facility] Systolic blood pressure 2023-02-12 17:35:00 168 mm[Hg] [facility] Diastolic blood pressure 2023-02-12 17:35:00 107 mm[Hg] [facility] Heart rate 2023-02-12 17:35:00 75 /min [facility]ive [facility] Body temperature 2023-02-12 17:35:00 37 [place] [facility] Respiratory rate 2023-02-12 17:35:00 14 /min [facility] Body height 2023-02-12 17:35:00 167.6 cm [facility] Body weight 2023-02-12 17:35:00 86.183 kg [facility] BMI 2023-02-12 17:35:00 30.67 kg/m2 [facility] Oxygen saturation in Arterial blood by Pulse oximetry 2023-02-12 17:35:00 99 /min [facility] Procedures Procedure Date / Time Performed Performing Clinician Source POCT GLUCOSE (AUTOMATED) 2024-09-04 16:03:00 Christian, SaadWilver Glynn [facility] CT ABDOMEN PELVIS W CONTRAST 2024-09-04 05:32:31 Henry Barry [facility] CT TRAUMA THORACIC SPINE WO CONTRAST 2024-09-04 05:32:31 Henry Barry [facility] CT TRAUMA LUMBAR SPINE WO CONTRAST 2024-09-04 05:32:31 Henry Barry [facility] URINALYSIS 2024-09-04 05:02:00 Henry Barry [facility] LIPASE 2024-09-04 04:58:00 Henry Barry [facility] HEPATIC FUNCTION PANEL ([id number]) (ALB,T.PRO,BILI T,BU/BC,ALT,AST,ALK PHOS) 2024-09-04 04:58:00 Henry Barry [facility] BASIC METABOLIC PANEL (NA, K, CL, CO2, GLUCOSE, BUN, CREATININE, CA) 2024-09-04 04:58:00 Henry Barry [facility] SEDIMENTATION RATE 2024-09-04 04:58:00 Henry Barry [facility] CBC WITH DIFF 2024-09-04 04:58:00 Henry Barry [facility] POCT GLUCOSE (AUTOMATED) 2024-08-24 19:17:00 Jose Antonio Nguyen [facility] TROPONIN I 2024-08-24 16:26:00 Jose Antonio Nguyen [facility] COMP. METABOLIC PANEL ([id number]) 2024-08-24 16:26:00 Jose Antonio Nguyen [facility] CBC WITH DIFF 2024-08-24 16:26:00 Jose Antonio Nguyen [facility] URINALYSIS 2024-08-24 16:26:00 Jose Antonio Nguyen [facility] LIPASE 2024-08-24 16:26:00 Jose Antonio Nguyen [facility] MAGNESIUM 2024-08-24 16:26:00 Jose Antonio Nguyne [facility] XR CHEST 1 VW 2024-08-14 06:36:51 Farnaz Corral [facility] CT ABDOMEN PELVIS W CONTRAST 2024-08-14 06:35:52 Farnaz Corral [facility] LACTIC ACID WHOLE BLOOD 2024-08-14 04:51:00 Becca Corral [facility] LIPASE 2024-08-14 04:50:00 Farnaz Corral [facility] COMP. METABOLIC PANEL ([id number]) 2024-08-14 04:50:[address] [facility] CBC WITH DIFF 2024-08-14 04:50:[address] [facility] URINALYSIS 2024-08-14 04:50:00 Farnaz Corral [facility] RAPID STREP SCREEN FOR GROUP A 2024-08-14 04:50:[address] [facility] INFLUENZA A/B RSV COVID NAAT 2024-08-14 04:50[facility] 2023-09-23 00:13:36 Ekta Munoz [facility] CT HEAD WO CONTRAST 2023-09-23 00:13:36 Emily Munoz [facility] XR PELVIS <3 VW 2023-09-22 23:52:02 Ekta Munoz [facility] XR WRIST 3+ VW LEFT 2023-09-22 23:52:02 Emily Munoz [facility] ASSIGNMENT OF BENEFITS 2023-09-22 23:39:03 Docto r Unassigned, Show Low [facility] NOTICE OF PRIVACY PRACTICES 2023-09-22 23:38:35 Doctor Unassigned, Show Low [facility] CONSENT/REFUSAL FOR DIAGNOSIS AND TREATMENT 2023-09-22 23:38:21 Doctor Unassigned, Show Low [facility] ASSIGNMENT OF BENEFITS 2023-02-12 17:56:38 Docto r Unassigned, Show Low [facility] CONSENT/REFUSAL FOR DIAGNOSIS AND TREATMENT 2023-02-12 17:31:06 Doctor Unassigned, Show Low [facility] NOTICE OF PRIVACY PRACTICES 2023-02-12 17:30:40 Doctor Unassigned, Show Low [facility] Encounters Start Date/Time End Date/Time Encounter Type Admission Type Attending [facility] Care Department Encounter ID Source 2024-11-08 11:00:00 2024-11-08 11:00:00 Outpatient SILVIANATASHA QUINTEN DIXIE WHARTON [id number] [facility] 2024-09-29 11:00:00 2024-09-29 11:00:00 Outpatient CADY QUINTEN WHARTON [id number] [facility] 2024-09-27 11:30:00 2024-09-27 11:30:00 Outpatient CADY QUINTEN WHARTON [id number] [facility] 2024-09-20 15:30:00 2024-09-20 15:30:00 Outpatient DIXIE WHARTON [id number] [facility] 2024-09-12 14:15:00 2024-09-12 14:15:00 Outpatient DIXIE WHARTON [id number] [facility] 2024-09-12 00:00:00 2024-09-12 00:00:00 Outpatient CADY QUINTEN WHARTON [id number] [facility] 2024-09-07 11:30:00 2024-09-07 11:30:00 Outpatient TRAVIS OLEARY DIXIE WHARTON [id number] [facility] 2024-09-03 22:29:00 2024-09-04 11:54:00 Emergency TOD MCNULTY HEE-KWANG YOO, [facility] [id number] [facility] 2024-09-03 22:29:00 2024-09-04 11:54:00 Emergency Henry Barry, Tod Carbajal [facility] (TRAUMA) 1..840.114 [id number] [facility] 2024-08-31 11:55:00 2024-08-31 11:55:00 Outpatient LAB90 DIXIE WHARTON [id number] [facility] 2024-08-31 00:00:00 2024-08-31 11:31:01 Letter (Out) Campaigns, Generic Provider Campaigns, Generic Provider [facility] (ELISABETH) 1..840.114 [id number] [facility] 2024-08-31 11:00:00 2024-08-31 11:00:00 Outpatient QUINTEN LAZAR [id number] [facility] 2024-08-29 00:00:00 2024-08-29 00:00:00 Outpatient MEE ALONZO [id number] [facility] 2024-08-29 00:00:00 2024-08-29 00:00:00 Outpatient MEE ALONZO [id number] [facility] 2024-08-26 09:55:00 2024-08-26 09:55:00 Outpatient [id number] DIXIE WHARTON [id number] [facility] 2024-08-25 14:15:00 2024-08-25 14:15:00 Outpatient MEE ALONZO [id number] [facility] 2024-08-24 10:07:00 2024-08-24 14:39:00 Emergency Jose Antonio Nguyen [facility] 1..840.114 [id number] [facility] 2024-08-24 10:07:00 2024-08-24 14:39:00 Emergency X Jose Antonio NGUYEN K [facility] ERT [id number] [facility] 2024-08-13 22:23:00 2024-08-14 02:49:00 Emergency X FARNAZ CORRAL [facility] ERT [id number] [facility] 2024-08-13 22:23:00 2024-08-14 02:49:00 Emergency Farnaz Corral [facility] [id number] 350.1.13.10 [id number] [id number] [facility] 2024-08-01 11:00:00 2024-08-01 11:00:00 Outpatient DIXIE WHARTON [id number] Dixie sarah 2024-07-14 10:00:00 2024-07-14 10:00:00 Outpatient CARLITA RAZA [id number] [facility] 2024-07-13 00:00:00 2024-07-13 00:00:00 Outpatient CARLITA RAZA [id number] [facility] 2024-07-08 11:00:00 2024-07-08 11:00:00 Outpatient DIXIE WHARTON [id number] [facility] 2024-06-02 15:25:00 2024-06-02 15:25:00 Outpatient LAB90 DIXIE WHARTON [id number] [facility] 2024-06-02 14:30:00 2024-06-02 14:30:00 Outpatient CARLITA RAZA [id number] [facility] 2023-12-17 15:05:06 2023-12-17 15:05:06 Outpatient [facility] [id number] Ruben Esparza 2023-09-29 16:30:00 2023-09-29 16:30:00 Outpatient TROY VILLAVICENCIO [id number] [facility] 2023-09-22 16:41:00 2023-09-22 20:45:00 Emergency X EKTA MUNOZ [facility] ERT [id number] [facility] 2023-09-22 16:41:00 2023-09-22 20:45:00 Emergency X EKTA MUNOZ [facility] ERT [id number] [facility] 2023-09-22 16:41:00 2023-09-22 20:45:00 Emergency Ekta Munoz [facility] [id number] 350.1.13.10 [id number] [id number] [facility] 2023-02-12 12:37:00 2023-02-12 13:39:00 Emergency X INA BARON [facility] ERT [id number] [facility] 2023-02-12 12:37:00 2023-02-12 13:39:00 Emergency Ina Baron [facility] [id number] [id number] 4.2.7.2.686 [id number] [facility] Results Test Description Test Time Test Comments Results Result Co mments Source [facility] WO [id number] 07:09:33Exam: CT Thoracic and Lumbar Spine Without [...] are maintained. Moderate to severe loss ofthe L2-X1qyfoqkfoykwiry disc space with vacuum phenomena. Multilevel facetarthropathy. Posterior osteophyte disc complexes most pronounced at L2-3and L4-5 resulting in at least mild central canal stenosis. Paravertebral Tissues: Paraspinal soft tissues are unremarkable. No acutefinding in the visualized portions of the abdomen and pelvis.[facility] TRAUMA THORACIC SPINE WO [id number] 07:09:33Exam: CT Thoracic and Lumbar Spine Without [...] are maintained. Moderate to severe loss ofthe L2-R2ppudimnesanlvz disc space with vacuum phenomena. Multilevel facetarthropathy. Posterior osteophyte disc complexes most pronounced at L2-3and L4-5 resulting in at least mild central canal stenosis. Paravertebral Tissues: Paraspinal soft tissues are unremarkable. No acutefinding in the visualized portions of the abdomen and pelvis.[facility] PELVIS W [id number] 07:03:38Exam: CT Abdomen and Pelvis with contrast, [...] MUSCULOSKELETAL:Soft tissues: Unremark able.Bones: No acute osseous abnormality.[facility] Sedimentation [id number] 06:01:10* Test Item Value Reference Range Interpretation Comme nts ESR (test code = 76103-0) 73 2-30 H Lab Interpretation (test cod e = 01970-3) [facility] (NA, K, CL, CO2, GLUCOSE, BUN, CREATININE, CA)2024-09-04 05:41:28* Test Item Value Reference Range Interpretation Comme nts NA (test code = 8536271843) 129 mmol/L 135-145 L K (test code = 1250122101) 4.7 mmol/L 3.5-5.0 CL (test code = 9544390058) 95 mmol/L 98-108 L CO2 TOTAL (test code = 9684884080) 25 mmol/L 23-31 AGAP (test code = 0486396161) 9 2-16 BUN (test code = 2906640061) 17 mg/dL 7-23 GLUCOSE (test code = 8008562225) 222 mg/dL 70-110 H CREATININE (test code = 2160-0) 0.45 mg/dL 0.60-1.25 L CALCIUM (test code = 9718793371) 9.1 mg/dL 8.6-10.6 eGFR (test code = 29051-7) 116.9 mL/min/1.73m2 CKD-EPI eGFR (2020). Assuming creatinine has been stable day-to-day for at least three months, the eGFR indicates Category G1 (>= 90 mL/min/1.73 m2) Lab Interpretation (test code = 25987-7) [facility] (82658[facility] (ALB,T.PRO,BILI T,BU/BC,ALT,AST,ALK PHOS)2024-09-04 05:41:28* Test Item Value Reference Range Interpretation Comme nts TOTAL BILI (test code = 4051661192) 0.8 mg/dL 0.1-1.1 BILI UNCON (test code = 2613444545) 1.1 mg/dL 0.1-1.1 BILI CONJ (test code = 8599521804) 0.0 mg/dL 0.0-0.3 T PROTEIN (test code = 9888074567) 6.8 g/dL 6.3-8.2 ALBUMIN (test code = 0443918872) 4.0 g/dL 3.5-5.0 ALK PHOS (test code = 2331919746) 99 U/L 34-122 ALTv (test code = 1742-6) 23 U/L 5-50 AST(SGOT) (test code = 9654889448) 21 U/L 13-40 Lab Interpretation (test cod e = 87653-3) [facility]2025-[facility]12 05:41:28* Test Item Value Reference Range Interpretation Comme nts LIPASE (test code = 4369748267) 68 U/L 0-220 Lab Interpretation (test cod e = 02363-1) Normal [facility] WITH [id number] 05:20:11* Test Item Value Reference Range Interpretation [...] g/dL 31.2-35.0 H RDW-SD (test code = 12231-6) 36.0 fL 38.5-51.6 L RDW-CV (test code = 788-0) 12.7 % 12.1-15.4 PLT (test code = 777-3) 341 150-328 H MPV (test code = 76581-8) 10.0 fL 9.8-13.0 NRBC/100 WBC (test code = 4449618515) 0.0 0.0-10.0 NRBC x10^3 (test code = 6022553372) See_Comment [Automated messa ge] The system which generated this result transmitted reference range: 10*3/?L. The reference range was not used to interpret this result as normal/abnormal. GRAN MAT (NEUT) % (test code = 770-8) 64.8 % IMM GRAN % (test code = 7941635916) 0.30 % LYMPH % (test code = 736-9) 22.6 % MONO % (test code = 5905-5) 9.7 % EOS % (test code = 713-8) 2.2 % BASO % (test code = 706-2) 0.4 % GRAN MAT x10^3(ANC) (test code = 2524030302) 6.09 10*3/uL 1.99-6.95 IMM GRAN x10^3 (test code = 6713721683) 0.03 10*3/uL 0.00-0.06 LYMPH x10^3 (test code = 731-0) 2.13 10*3/uL 1.09-3.23 MONO x10^3 (test code = 742-7) 0.91 10*3/uL 0.36-1.02 EOS x10^3 (test code = 711-2) 0.21 10*3/uL 0.06-0.53 BASO x10^3 (test code = 704-7) 0.04 10*3/uL 0.01-0.09 Lab Interpretation (test code = 30026-1) [facility]normal [facility]AUT[facility]ATED)2024-08-24 19:17:59* Test Item Value Reference Range Interpretation Comme nts POCT GLU (test code = 9697035809) 261 mg/dL 70-110 H Lab Interpretation (test cod e = 28380-4) [facility]normal [facility]ano[facility]roponin [id number] 17:00:40* Test Item Value Reference Range Interpretation Comme nts TROPONIN I (test code = 1600360871) 0.004 ng/mL <=0.034 DIALLO (test code = [...] of biotin. Lab Interpretation (test code = 70588-9) Normal [facility] with [id number] 16:59:00* Test Item Value Reference Range Interpretation [...] g/dL 31.2-35.0 H RDW-SD (test code = 06078-7) 34.5 fL 38.5-51.6 L RDW-CV (test code = 788-0) 11.9 % 12.1-15.4 L PLT (test code = 777-3) 440 150-328 H MPV (test code = 81282-4) 10.0 fL 9.8-13.0 NRBC/100 WBC (test code = 1214076101) 0.0 0.0-10.0 NRBC x10^3 (test code = 6811243891) See_Comment [Automated Machine Safety Manangementa ge] The system which generated this result transmitted reference range: 10*3/?L. The reference range was not used to interpret this result as normal/abnormal. GRAN MAT (NEUT) % (test code = 770-8) 66.6 % IMM GRAN % (test code = 6752923571) 1.00 % LYMPH % (test code = 736-9) 22.8 % MONO % (test code = 5905-5) 7.1 % EOS % (test code = 713-8) 2.2 % BASO % (test code = 706-2) 0.3 % GRAN MAT x10^3(ANC) (test code = 6705218648) 6.09 10*3/uL 1.99-6.95 IMM GRAN x10^3 (test code = 0721886038) 0.09 10*3/uL 0.00-0.06 H LYMPH x10^3 (test code = 731-0) 2.09 10*3/uL 1.09-3.23 MONO x10^3 (test code = 742-7) 0.65 10*3/uL 0.36-1.02 EOS x10^3 (test code = 711-2) 0.20 10*3/uL 0.06-0.53 BASO x10^3 (test code = 704-7) 0.03 10*3/uL 0.01-0.09 Lab Interpretation (test code = 06602-9) [facility]normal [facility] Metabolic Panel (70509)2024-08-24 16:49:42* Test Item Value Reference Range Interpretation Comme nts NA (test code = 6728887174) 125 mmol/L 135-145 L K (test code = 1262435006) 3.8 mmol/L 3.5-5.0 CL (test code = 5959793615) 91 mmol/L 98-108 L CO2 TOTAL (test code = 8331598813) 24 mmol/L 23-31 AGAP (test code = 1236848815) 10 2-16 BUN (test code = 5661882911) 13 mg/dL 7-23 GLUCOSE (test code = 7000900734) 347 mg/dL 70-110 H CREATININE (test code = 2160-0) 0.55 mg/dL 0.60-1.25 L TOTAL BILI (test code = 6186502580) 1.0 mg/dL 0.1-1.1 CALCIUM (test code = 1448942881) 8.6 mg/dL 8.6-10.6 T PROTEIN (test code = 8348548453) 6.6 g/dL 6.3-8.2 ALBUMIN (test code = 6028687087) 3.8 g/dL 3.5-5.0 ALK PHOS (test code = 9805617293) 105 U/L 34-122 ALTv (test code = 1742-6) 25 U/L 5-50 AST(SGOT) (test code = 4741617614) 23 U/L 13-40 eGFR (test code = 10970-0) 110.0 mL/min/1.73m2 CKD-EPI eGFR (2020). Assuming creatinine has been stable day-to-day for at least three months, the eGFR indicates Category G1 (>= 90 mL/min/1.73 m2) Lab Interpretation (test code = 50353-5) [facility]normal [facility]esium2025-01-01 16:49:42* Test Item Value Reference Range Interpretation Comme nts MAGNESIUM (test code = 2641374060) 1.9 mg/dL 1.7-2.4 Lab Interpretation (test cod e = 18962-8) Normal [facility]2025-01-01 16:49:21* Test Item Value Reference Range Interpretation Comme nts LIPASE (test code = 3608597077) 154 U/L 0-220 Lab Interpretation (test cod e = 50512-9) Normal [facility] Abdomen pelvis w [id number] 07:15:44Ordering physician: FARNAZ CORRAL Indication: Acute abdominal pain, left-sided abdominal [...] mild central canal stenosis andmoderate neural foraminal stenosis.[facility] Chest 1 [id number] 07:02:06Exam: Chest (1 View), 08/14/2024 12:00 AM. Ordering Physician: FARNAZ CORRAL. History: Fever. Technique: AP view of the chest. Technical Quality: Adequate. Comparison: None. Findings: Normal cardiac silhouette size. No airspace consolidation, pleuraleffusion, or pneumothorax. No acute osseous abnormality.[facility]. Metabolic Panel (23750)2024-08-14 05:24:07* Test Item Value Reference Range Interpretation Comme nts NA (test code = 2171311176) 129 mmol/L 135-145 L K (test code = 6407192716) 4.1 mmol/L 3.5-5.0 CL (test code = 0269981117) 97 mmol/L 98-108 L CO2 TOTAL (test code = 6617819782) 23 mmol/L 23-31 AGAP (test code = 6520058791) 9 2-16 BUN (test code = 5972181018) 15 mg/dL 7-23 GLUCOSE (test code = 8959666696) 210 mg/dL 70-110 H CREATININE (test code = 2160-0) 0.70 mg/dL 0.60-1.25 TOTAL BILI (test code = 7904102048) 0.7 mg/dL 0.1-1.1 CALCIUM (test code = 9703450314) 9.2 mg/dL 8.6-10.6 T PROTEIN (test code = 1079771841) 7.9 g/dL 6.3-8.2 ALBUMIN (test code = 0229960288) 4.6 g/dL 3.5-5.0 ALK PHOS (test code = 3303815391) 96 U/L 34-122 ALTv (test code = 1742-6) 26 U/L 5-50 AST(SGOT) (test code = 8593730660) 26 U/L 13-40 eGFR (test code = 60411-0) 102.3 mL/min/1.73m2 CKD-EPI eGFR (2020). Assuming creatinine has been stable day-to-day for at least three months, the eGFR indicates Category G1 (>= 90 mL/min/1.73 m2) Lab Interpretation (test code = 79482-0) [facility]normal [facility]2024-12-22 05:24:07* Test Item Value Reference Range Interpretation Comme nts LIPASE (test code = 0706434546) 72 U/L 0-220 Lab Interpretation (test cod e = 59266-3) Normal [facility]anoLactic Acid Whole [id number] 05:05:24* Test Item Value Reference Range Interpretation Comme nts LACTIC ACID (test code = 8316405610) 1.18 mmol/L 0.50-2.20 Lab Interpretation (test cod e = 11716-3) Normal [facility] with [id number] 05:02:44* Test Item Value Reference Range Interpretation [...] g/dL 31.2-35.0 H RDW-SD (test code = 01731-6) 36.4 fL 38.5-51.6 L RDW-CV (test code = 788-0) 11.9 % 12.1-15.4 L PLT (test code = 777-3) 198 150-328 MPV (test code = 86890-5) 11.2 fL 9.8-13.0 NRBC/100 WBC (test code = 3203944375) 0.0 0.0-10.0 NRBC x10^3 (test code = 9315828416) See_Comment [Automated Machine Safety Manangementa ge] The system which generated this result transmitted reference range: 10*3/?L. The reference range was not used to interpret this result as normal/abnormal. GRAN MAT (NEUT) % (test code = 770-8) 71.2 % IMM GRAN % (test code = 1097984792) 0.30 % LYMPH % (test code = 736-9) 21.0 % MONO % (test code = 5905-5) 6.7 % EOS % (test code = 713-8) 0.2 % BASO % (test code = 706-2) 0.6 % GRAN MAT x10^3(ANC) (test code = 3164170947) 4.65 10*3/uL 1.99-6.95 IMM GRAN x10^3 (test code = 0762145458) 0.00-0.06 LYMPH x10^3 (test code = 731-0) 1.37 10*3/uL 1.09-3.23 MONO x10^3 (test code = 742-7) 0.44 10*3/uL 0.36-1.02 EOS x10^3 (test code = 711-2) 0.06-0.53 L BASO x10^3 (test code = 704-7) 0.04 10*3/uL 0.01-0.09 Lab Interpretation (test code = 15835-5) [facility] HEAD WO [id number] 01:12:52EXAM: CT HEAD WO CONTRAST, CT CERVICAL [...] junction is intact. The intervertebral disc spaces arepreserved.[facility] CERVICAL SPINE WO [id number] 01:12:52EXAM: CT HEAD WO CONTRAST, CT CERVICAL [...] junction is intact. The intervertebral disc spaces arepreserved.[facility] PELVIS <3 [id number] 00:45:46XR PELVIS <3 VW Indication: right pelvic pain after a fall Technique: A frontal view of the pelvis was submitted for interpretation. Comparison: None RL: Ordering Clinician: EKTA MUNOZ Technical Quality: Adequate Findings:No fractures or dislocations. No acute soft tissue abnormalities.[facility] WRIST 3+ VW [id number] 00:33:24Ordering physician:EKTA MUNOZ CLINICAL HISTORY: ? ?Left wrist pain TECHNIQUE: 3 views of theleft wrist COMPARISON: ?None FINDINGS: There is an acute comminuted intra-articular fracture of thedistal radius.The distal ulna appears intact. Probable cyst or ganglion within thescaphoid. Bony alignment is otherwise maintained. Soft tissue swelling ofthe wrist. Vascular calcifications.[facility]
--- NOTE | 2024-09-29 13:57 | RAD REPORT ---
EXAMINATION: ONE VIEW CHEST XR CLINICAL INDICATION: Male, 64 years old.,ABDOMINAL DISTENTION TECHNIQUE: Frontal chest projection is submitted. Examination is limited by patient positioning and t echnique. COMPARISON: No prior exam. FINDINGS: The lungs are well inflated and clear. No pneumothorax or sizable effusion. The heart is normal in s ize. Mediastinal contours are unremarkable. IMPRESSION: No acute intrathoracic abnormalities.
[2024-09-29] MEDS ORDERED: FAMOTIDINE 20 MG/2 ML VIAL IV ONE (14:42)
[2024-09-29] MEDS ORDERED: NA CHLORIDE 0.9% 1,000 ML ONE (14:42)
[2024-09-29 14:52] LABS: Absolute Basophils 0.1 K/uL (0-0.5); Absolute Eosinophils 0.2 K/uL (0-0.5); Absolute Lymphocytes (CBC) 2.6 K/uL (0.7-4.9); Absolute Monocytes 0.6 K/uL (0.1-1.3); Absolute Neutrophil 4.7 K/uL (1.8-8.0); Basophils % 1.5 % (0-1.3); Eosinophils % 2.3 % (0-4.4); Hematocrit 42.7 % (39.6-49.0); Hemoglobin 14.7 g/dL (13.6-17.9); Lymphocytes % 31.5 % (15.3-44.8); MCH 28.5 pg (27.0-35.0); MCHC 34.5 g/dL (32.0-36.0); MCV 82.8 fL (80-100); MPV 8.2 fL (7.6-11.3); Monocytes % 7.6 % (3.3-12.3); Neutrophils % 57.1 % (41.7-73.7); Nucleated Red Blood Cells % 0.1 % (0-0); Platelets 334 thou/uL (152-406); RBC Red Blood Cell Count 5.16 M/uL (4.33-5.43); Red Cell Distribution Width 14.2 % (12.1-15.2)
[2024-09-29 14:56] LABS: Specific Gravity 1.022 (1.005-1.030); Sqamous Epithelial <5 /HPF (None Seen); Urine Bacteria None Seen /HPF (<20); Urine Bilirubin NEGATIVE (Negative); Urine Blood Negative (Negative); Urine Clarity Clear (Clear); Urine Color Yellow (Yellow); Urine Culture Reflex Order NOT NEEDED; Urine Glucose TRACE (Negative); Urine Ketones NEGATIVE (Negative); Urine Microscopic Reflex YN ORDER UMIC; Urine Mucus Slight /HPF (None Seen); Urine Nitrite NEGATIVE (Negative); Urine Protein TRACE (Negative); Urine RBC <5 /HPF (None Seen); Urine Urobilinogen Normal (Normal); Urine WBC <5 /HPF (<5)
[2024-09-29 15:01] LABS: PT Prothrombin Time 11.5 SECONDS (9.4-12.5); Protime INR 1.1
[2024-09-29 15:12] LABS: Albumin 4.1 g/dL (3.4-5.0); Anion Gap 9.8 mEq/L (5.0-15.0); Bilirubin Direct 0.2 mg/dL (0-0.2); Bilirubin Indirect, Calculated 0.5 mg/dL (0.2-0.8); Bilirubin Total 0.7 mg/dL (0.2-1.0); Magnesium 2.2 mg/dL (1.6-2.4); Potassium 3.8 mEq/L (3.5-5.1); Protein, Total 8.1 g/dL (6.4-8.2); Troponin High Sensitivity 3.1 pg/mL (<58.9)
--- NOTE | 2024-09-29 16:02 | RAD REPORT ---
EXAMINATION: US Abdomen Exam Limited CLINICAL HISTORY: [facility] MAIN Y ABD PAIN Bed Name: DX1 COMPARISON: 09/19/2024 CT abdomen pelvis TECHNIQUE: Limited upper abdominal grayscale and color flow sonographic images. FINDINGS: Gallbladder: Normal. Bile ducts: No intrahepatic or extrahepatic biliary dilatation. Common bile duct measures 5 mm. Liver: Visualized portions of the liver demonstrate normal echogenicity with no suspicious findings. Fluid: No ascites. IMPRESSION: No abnormalities on right upper quadrant ultrasound.
--- NOTE | 2024-09-29 16:31 | RAD REPORT ---
EXAMINATION: CT Abdomen Pelvis W Contrast CLINICAL INDICATION: Male, 64 years old. ABD PAIN TECHNIQUE: CT abdomen and pelvis was performed, after the administration of IV contrast, as per [facility] protocol. Axial, sagittal and coronal reconstructions were obtained. One or more of the following dose reduction techniques were used: Automated exposure control, adjustment of the mA and k V according to patient size, and iterative reconstruction. Unless otherwise specified, incidental findings do not require dedicated imaging follow-up. COMPARISON: 09/19/2024 FINDINGS: LOWER CHEST: The visualized lung bases are clear. LIVER: Normal in size and contour. No focal lesion. BILIARY SYSTEM: No suspicious abnormalities. SPLEEN: Normal size. No focal lesion. PANCREAS: No mass, ductal dilation, or judson-pancreatic fluid. ADRENALS: Normal; no mass. KIDNEYS: Normal size and contour. No hydronephrosis. URINARY BLADDER: Unremarkable. GASTROINTESTINAL TRACT: No evidence of free air, significant intra-abdominal free fluid, bowel obstru ction or abscess. Moderate stool burden along the ascending colon. APPENDIX: Normal appendix. LYMPH NODES: No lymphadenopathy. MUSCULOSKELETAL: No acute or suspicious osseous abnormality. ADDITIONAL FINDINGS: Mild wall prominence and fat stranding along the celiac axis proximally, stable and nonspecific. IMPRESSION: No acute or concerning abnormalities seen in the abdomen or pelvis. Stable mild wall prominence and adjacent fat stranding along the celiac axis, could reflect mild vasc ulitis.
--- NOTE | 2024-09-29 16:33 | EDPHYS ---
Physician Documentation [facility] Name: Jonah Whitaker Age: 64 yrs Sex: Male : 1960 Arrival Date: 09/29/2024 Time: 12:27 Bed DX1 Private MD: ED Physician Joseph Ortiz HPI: 09/29 16:04 This 64 yrs old Male presents to ER via Ambulatory with complaints of Abnormal eleno Lab Results, Abdominal Pain. 16:04 The patient presents with abdominal pain in the upper abdomen, in the lower abdomen. eleno Onset: The symptoms/episode began/occurred 3 day(s) ago. The symptoms do not radiate. Associated signs and symptoms: none. The symptoms are described as crampy. Modifying factors: The symptoms are alleviated by nothing, the symptoms are aggravated by food. Severity of pain: At its worst the pain was moderate in the emergency department the pain is unchanged. The patient has not experienced similar symptoms in the past. Historical: - Allergies: 12:53 No Known Allergies; me1 - PMHx: 12:53 diabetes mellitus; Hypertensive disorder; me1 - PSHx: 12:53 None; me1 - Immunization history:: Adult Immunizations up to date. - Infectious Disease History:: Denies. - Social history:: Smoking status: Patient/guardian denies using tobacco, but has a distant history of tobacco abuse. - Family history:: not pertinent. ROS: 16:08 Constitutional: Negative for fever, chills, and weight loss, Eyes: Negative for injury, eleno pain, redness, and discharge, ENT: Negative for injury, pain, and discharge, Neck: Negative for injury, pain, and swelling, Cardiovascular: Negative for chest pain, palpitations, and edema, Respiratory: Negative for shortness of breath, cough, wheezing, and pleuritic chest pain, Abdomen/GI: Negative for abdominal pain, nausea, vomiting, diarrhea, and constipation, Back: Negative for injury and pain, : Negative for injury, bleeding, discharge, and swelling, MS/Extremity: Negative for injury and deformity, Skin: Negative for injury, rash, and discoloration, Neuro: Negative for headache, weakness, numbness, tingling, and seizure, Psych: Negative for depression, anxiety, suicide ideation, homicidal ideation, and hallucinations, Allergy/Immunology: Negative for hives, rash, and allergies, Endocrine: Negative for neck swelling, polydipsia, polyuria, polyphagia, and marked weight changes, Hematologic/Lymphatic: Negative for swollen nodes, abnormal bleeding, and unusual bruising, Exam: 16:04 Constitutional: This is a well developed, well nourished patient who is awake, alert, eleno and in no acute distress. Head/Face: Normocephalic, atraumatic. Eyes: Pupils equal round and reactive to light, extra-ocular motions intact. Lids and lashes normal. Conjunctiva and sclera are non-icteric and not injected. Cornea within normal limits. Periorbital areas with no swelling, redness, or edema. ENT: Nares patent. No nasal discharge, no septal abnormalities noted. Tympanic membranes are normal and external auditory canals are clear. Oropharynx with no redness, swelling, or masses, exudates, or evidence of obstruction, uvula midline. Mucous membranes moist. Neck: Trachea midline, no thyromegaly or masses palpated, and no cervical lymphadenopathy. Supple, full range of motion without nuchal rigidity, or vertebral point tenderness. No Meningismus. Chest/axilla: Normal chest wall appearance and motion. Nontender with no deformity. No lesions are appreciated. Cardiovascular: Regular rate and rhythm with a normal S1 and S2. No gallops, murmurs, or rubs. Normal PMI, no JVD. No pulse deficits. Respiratory: Lungs have equal breath sounds bilaterally, clear to auscultation and percussion. No rales, rhonchi or wheezes noted. No increased work of breathing, no retractions or nasal flaring. Back: No spinal tenderness. No costovertebral tenderness. Full range of motion. Male : Normal genitalia with no discharge or lesions. Skin: Warm, dry with normal turgor. Normal color with no rashes, no lesions, and no evidence of cellulitis. MS/ Extremity: Pulses equal, no cyanosis. Neurovascular intact. Full, normal range of motion., bilateral aka Neuro: Awake and alert, GCS 15, oriented to person, place, time, and situation. Cranial nerves II-XII grossly intact. Motor strength 5/5 in all extremities. Sensory grossly intact. Cerebellar exam normal. Normal gait. Psych: Awake, alert, with orientation to person, place and time. Behavior, mood, and affect are within normal limits. 16:04 ECG was reviewed by the Attending Physician. 16:04 Abdomen/GI: Inspection: abdomen appears normal, Bowel sounds: normal, Palpation: mild abdominal tenderness, in all quadrants, Liver: no appreciated palpable abnormalities, Hernia: not appreciated, Vital Signs: 12:50 BP 134 / 87; Pulse 97; Resp 16; Temp 97.6; Pulse Ox 100% ; Weight 78.93 kg; Height 5 me1 ft. 6 in. ; Pain 9/10; 12:50 Body Mass Index 28.08 (78.93 kg, 167.64 cm) me1 12:50 Pain Scale: Adult me1 MDM: 12:32 Medical Screening Exam initiated eleno 16:09 Differential diagnosis: bowel obstruction, Cholelithiasis, diverticulitis, gastritis, eleno gastroesophageal reflux disease, Mesenteric ischemia or infarction, non-specific abd pain, pancreatitis, Peptic Ulcer Disease, Prostatitis, Ureterolithiasis, urinary tract infection. Data reviewed: vital signs, nurses notes, lab test result(s), EKG, radiologic studies, CT scan, ultrasound. Consideration of Admission/Observation Escalation of care including admission/observation considered. I considered the following discharge prescriptions or medication management in the emergency department Medications were administered in the Emergency Department. See MAR. Independent interpretation of the following test(s) in the Emergency Department EKG: See my EKG interpretation above. Test considered but Not performed: MRI: no mrcp. Historians other than the Patient: Family Member: family well informed. Care significantly affected by the following chronic conditions: Diabetes, Hypertension, Obesity. Counseling: I had a detailed discussion with the patient and/or guardian regarding the historical points, exam findings, and any diagnostic results supporting the discharge/admit diagnosis, lab results, radiology results, the need for outpatient follow up, for definitive care, a family practitioner, a production proofreader. 09/29 12:33 Order name: Basic Metabolic Panel; Complete Time: 16:03 [facility] 09/29 12:33 Order name: CBC with Diff; Complete Time: 16:03 [facility] 09/29 12:33 Order name: LFT's; Complete Time: 16:03 [facility] 09/29 12:33 Order name: Magnesium; Complete Time: 16: [facility] 09/29 12:33 Order name: NT PRO-BNP; Complete Time: 16: [facility] 09/29 12:33 Order name: PT-INR; Complete Time: 16:03 [facility] 09/29 12:33 Order name: Troponin HS; Complete Time: 16:03 [facility] 09/29 12:33 Order name: Lipase; Complete Time: 16:03 [facility] 09/29 12:33 Order name: Urinalysis w/ reflexes; Complete Time: 16:03 [place]eno 09/29 12:33 Order name: XRAY Chest (1 view); Complete Time: 16:03 [facility] 09/29 13:10 Order name: CT Abd/Pelvis - IV Contrast Only; Complete Time: 16:32 [facility] 09/29 14:52 Order name: US Abdomen Limited; Complete Time: 16:03 09/29 12:33 Order name: EKG - Nurse/Tech; Complete Time: 14:49 [facility] 09/29 12:33 Order name: IV Saline Lock; Complete Time: 14:40 [facility] 09/29 12:33 Order name: Labs collected and sent; Complete Time: 14:40 [facility] 09/29 12:33 Order name: O2 Per Protocol; Complete Time: 14:26 [facility] 09/29 12:33 Order name: O2 Sat Monitoring; Complete Time: 14:26 [facility] EC:04 Rate is 72 beats/min. Rhythm is regular. QRS [place] is Normal. QRS interval is normal. QT eleno interval is normal. No Q waves. T waves are Normal. No ST changes noted. Clinical impression: Normal ECG and No evidence of ischemia. Interpreted by me. Reviewed by me. Administered Medications: 14:49 Drug: NS 0.9% IV 1000 ml IV at 1000 ml once; to be given as a bolus over 60 minutes jl7 Route: IV; Rate: 1000 ml; Site: right antecubital; 14:49 Drug: Famotidine IVP 20 mg IVP once; dilute with 10 mL 0.9% NaCl; give over 2 minutes jl7 Route: IVP; Site: right antecubital; 16:45 Drug: Aspirin PO Chewable Tablet 81 mg PO once Route: PO; ap3 Disposition Summary: 09/29/24 16:33 Discharge Ordered Notes: Location: Home eleno Problem: new eleno Symptoms: have improved eleno Condition: Stable eleno Diagnosis - Abdominal tenderness eleno - Abdominal pain, Generalized eleno Followup: eleno - With: Private Physician - When: 2 - 3 days - Reason: Recheck today's complaints, Continuance of care, Re-evaluation by your physician Followup: eleno - With: Presley Auguste MD - When: 2 - 3 days - Reason: Recheck today's complaints, Re-evaluation by your physician Followup: eleno - With: Tej Rouse MD - When: 2 - 3 days - Reason: Recheck today's complaints, Re-evaluation by your physician Discharge Instructions: - Discharge Summary Sheet eleno - Abdominal Pain, Adult eleno - Abdominal Pain, Adult, [id number] eleno - Aspirin and Your Heart [facility] Forms: - Medication Reconciliation Form eleno - Antibiotic Education eleno - Prescription Opioid Use eleno - Patient Portal Instructions [facility] - Leadership Thank You Letter [facility] Prescriptions: - ondansetron 4 mg Oral Tablet,disintegrating - take 1 tablet ORAL route every 6-8 hours for 5 days prn nausea and vomiting; 20 eleno tablet; Refills: 0, Product Selection Permitted - Pepcid 20 mg Oral Tablet - take 1 tablet ORAL route every 12 hours for 10 days; 20 tablet; Refills: 0, eleno Product Selection Permitted - dicyclomine 20 mg Oral tablet - take 1 tablet ORAL route 4 times per day; 28 tablet; Refills: 0, Product eleno Selection Permitted Signatures: Dispatcher [employer] EDMS Joseph Ortzi MD MD cha Leal, Jahala RN RN jl7 Alma Phillips RN RN ap3 Poornima Ramirez, RN RN me1 Corrections: (The following items were deleted from the chart) 12:33 12:33 BASIC METABOLIC PANEL+C.LAB.BRZ ordered. EDMS EDMS 12:33 12:33 CBC+H.LAB.BRZ ordered. EDMS EDMS 12:33 12:33 HEPATIC FUNCTION+C.LAB.BRZ ordered. EDMS EDMS 12:33 12:33 MAGNESIUM+C.LAB.BRZ ordered. EDMS EDMS 12:33 12:33 PROBNP+C.LAB.BRZ ordered. EDMS EDMS 12:33 12:33 PROTIME (+INR)+COAG.LAB.BRZ ordered. EDMS EDMS 12:33 12:33 Troponin High Sensitivity+C.LAB.BRZ ordered. EDMS EDMS 12:33 12:33 LIPASE+C.LAB.BRZ ordered. EDMS EDMS 12:33 12:33 Urinalysis+U.LAB.BRZ ordered. EDMS EDMS 12:34 12:34 Chest Single View+RAD.RAD.BRZ ordered. EDMS EDMS
--- NOTE | 2024-09-29 16:33 | ER ---
Nurse's Notes [facility] Name: Jonah Whitaker Age: 64 yrs Sex: Male : 1960 Arrival Date: 09/29/2024 Time: 12:27 Bed DX1 Private MD: Diagnosis: Abdominal tenderness;Abdominal pain, Generalized Presentation: 09/29 12:50 Chief complaint: Patient states: abdominal pain 05/03. Had EGD 2 weeks ago and was dx me1 w/stomach ulcer. Sent today by Dr Haider's office for pain and abnormal lab results. Reports constipation. No n/v. Coronavirus screen: Vaccine status: Patient reports being unvaccinated. Ebola Screen: No symptoms or risks identified at this time. Initial Sepsis Screen: Does the patient meet any 2 criteria? No. Patient's initial sepsis screen is negative. Does the patient have a suspected source of infection? No. Patient's initial sepsis screen is negative. Risk Assessment: Do you want to hurt yourself or someone else? Patient reports no desire to harm self or others. Onset of symptoms is unknown. 12:50 Method Of Arrival: Ambulatory sc1 12:50 Acuity: CESAR 3 me1 Triage Assessment: 16:45 General: Appears in no apparent distress. Behavior is calm, cooperative. ap3 Historical: - Allergies: 12:53 No Known Allergies; me1 - PMHx: 12:53 diabetes mellitus; Hypertensive disorder; me1 - PSHx: 12:53 None; me1 - Immunization history:: Adult Immunizations up to date. - Infectious Disease History:: Denies. - Social history:: Smoking status: Patient/guardian denies using tobacco, but has a distant history of tobacco abuse. - Family history:: not pertinent. Screenin:45 [facility] ED Fall Risk Assessment (Adult) History of falling in the last 3 months, ap3 including since admission No falls in past 3 months (0 pts) Confusion or Disorientation No (0 pts) Intoxicated or Sedated No (0 pts) Impaired Gait No (0 pts) Mobility Assist Device Used No (0 pt) Altered Elimination No (0 pt) Score/Fall Risk Level 0 - 2 = Low Risk Oriented to surroundings, Maintained a safe environment, Educated pt \T\ family on fall prevention, incl call for assistance when getting out of bed, Assessed \T\ reinforced patient's understanding of fall precautions, Hourly rounding (assess needs \T\ fall precautionary measures) done, Used ambulatory aids as needed (educated on \T\ assisted with). Abuse screen: Denies threats or abuse. Nutritional screening: No deficits noted. Tuberculosis screening: No symptoms or risk factors identified. Vital Signs: 12:50 BP 134 / 87; Pulse 97; Resp 16; Temp 97.6; Pulse Ox 100% ; Weight 78.93 kg; Height 5 me1 ft. 6 in. ; Pain 9/10; 12:50 Body Mass Index 28.08 (78.93 kg, 167.64 cm) me1 12:50 Pain Scale: Adult me1 ED Course: 12:31 Patient arrived in ED. im 12:32 Joseph Ortiz MD is Attending Physician. [facility] 12:53 Triage completed. me1 12:53 Arm band placed on Patient placed in waiting room. me1 13:18 XRAY Chest (1 view) In Process Unspecified. EDMS 14:42 Radiology exam delayed due to lab results not completed at this time. IV insertion jc4 attempt and/or patient not having appropriate IV at this time. 14:49 Initial lab(s) drawn, by me, sent to lab. EKG done, by ED staff, reviewed by Joseph Ortiz MD. Inserted saline lock: 20 gauge in right antecubital area, using aseptic technique. Blood collected. Flushed with 10 mL NS. 15:22 US Abdomen Limited In Process Unspecified. EDMS 15:30 CT Abd/Pelvis - IV Contrast Only In Process Unspecified. EDMS 16:33 Presley Auguste MD is Referral Physician. [facility] 16:33 Tej Rouse MD is Referral Physician. eleno 16:45 IV discontinued, intact, bleeding controlled, No redness/swelling at site. Pressure ap3 dressing applied. Administered Medications: 14:49 Drug: NS 0.9% IV 1000 ml IV at 1000 ml once; to be given as a bolus over 60 minutes jl7 Route: IV; Rate: 1000 ml; Site: right antecubital; 14:49 Drug: Famotidine IVP 20 mg IVP once; dilute with 10 mL 0.9% NaCl; give over 2 minutes jl7 Route: IVP; Site: right antecubital; 16:45 Drug: Aspirin PO Chewable Tablet 81 mg PO once Route: PO; ap3 Outcome: 16:33 Discharge ordered by . eleno 16:45 Discharged to home ambulatory, with family, ap3 16:45 Condition: good 16:45 Discharge instructions given to patient, family, Instructed on discharge instructions, follow up and referral plans. Demonstrated understanding of instructions, follow-up care, medications, Prescriptions given X 3, 16:46 Patient left the ED. ap3 Signatures: Dispatcher [employer] EDJoseph Shirley MD MD cha Leal, Jahala, RN RN jl7 Alma Phillips RN RN ap3 Jasmin Tinajero Michelle RN RN me1 [place]
[2024-09-29] MEDS ORDERED: ASPIRIN 81 MG CHEWABLE TABLET ONE (16:35)
[2024-09-29 17:02] VITALS: BP 134/87; TEMP 97.6; O2SAT 100
--- NOTE | 2024-09-30 13:41 | EKG ---
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
== END 2024-09-29 16:46 | disposition home or self-care (01) ==
LOC: ER 12:27
DX: R10.817 Generalized abdominal tenderness (principal); R10.84 Generalized abdominal pain
CPT/HCPCS: 93005; 85025; 81001; 80048; 36415; 83735; 85610; 80076; 84484; 83690; 83880; 74177; 71045; 76705; 96374; 99284; Q9967; J7030